=== PATIENT | male | born 1940 | race Caucasian/White ===

== ENCOUNTER → 2016-11-30 | Outpatient (CLI) | payer MEDICARE ==
[2016-11-30 10:25] LABS: Basophils % (A) 1 %; CHCM 35.2; Eosinophils # (A) 0.1 k/uL (0-0.7); Eosinophils % (A) 2 %; HCT 44.2 % (39.0-53.0); HDW 2.77; Luc # (Auto) 0.09; Luc % (Auto) 2; Lymphocytes # (A) 1.3 k/uL (1.0-4.8); Lymphocytes % (A) 28 %; MCH 31.9 pg (25.0-35.0); MCHC 33.9 g/dL (31.0-37.0); MCV 94.4 fL (80.0-100.0); Mean Platelet Volume 7.2; Monocytes # (A) 0.3 k/uL (0-1.0); Monocytes % (A) 6 %; Neutrophils # (A) 2.8 k/uL (1.3-7.7); Neutrophils % (A) 61 %; RBC 4.68 m/uL (4.30-5.90); RDW 13.6 % (11.5-15.5); WBC 4.6 k/uL (3.8-10.6); WBC (Perox) 4.52
[2016-11-30 10:36] LABS: ALT 46 U/L (21-72); AST 39 U/L (17-59); Alkaline Phosphatase 82 U/L (38-126); Anion Gap 12 mmol/L; Blood Urea Nitrogen 11 mg/dL (9-20); Calcium 9.1 mg/dL (8.4-10.2); Carbon Dioxide 23 mmol/L (22-30); Chloride 107 mmol/L (98-107); Cholesterol 167 mg/dL (<200); Creatine Kinase 252 U/L (55-170); Glucose 89 mg/dL (74-99); HDL Cholesterol 46 mg/dL (40-60); Non-African American GFR(MDRD) >60 (>60 ml/min/1.73 sqM); Potassium 4.5 mmol/L (3.5-5.1); Sodium 142 mmol/L (137-145); Total Bilirubin 0.6 mg/dL (0.2-1.3); Total Protein 6.7 g/dL (6.3-8.2); Triglycerides 177 mg/dL (<150)
[2016-11-30 12:16] LABS: Hemoglobin A1C 5.4 % (4.2-6.1)
== END | disposition home or self-care (01) ==
LOC: LABWHC1 09:29
PROVIDERS: ATTEND Internal Medicine
DX: E55.9 Vitamin D deficiency, unspecified (principal); K21.9 Gastro-esophageal reflux disease without esophagitis; E78.00 Pure hypercholesterolemia, unspecified; E03.9 Hypothyroidism, unspecified
CPT/HCPCS: 36415; 80053; 80061; 82306; 82550; 83036; 84439; 84443; 85025

== ENCOUNTER → 2017-02-27 | Outpatient (CLI) | payer MEDICARE ==
[2017-02-27 09:35] LABS: Basophils % (A) 1 %; CHCM 35.5; Eosinophils # (A) 0.1 k/uL (0-0.7); Eosinophils % (A) 3 %; HCT 43.7 % (39.0-53.0); HDW 2.85; HGB 15.5 gm/dL (13.0-17.5); Luc # (Auto) 0.16; Luc % (Auto) 4; Lymphocytes # (A) 1.3 k/uL (1.0-4.8); Lymphocytes % (A) 28 %; MCH 33.1 pg (25.0-35.0); MCHC 35.4 g/dL (31.0-37.0); MCV 93.5 fL (80.0-100.0); Mean Platelet Volume 7.4; Monocytes # (A) 0.3 k/uL (0-1.0); Monocytes % (A) 6 %; Neutrophils # (A) 2.7 k/uL (1.3-7.7); Neutrophils % (A) 59 %; RBC 4.67 m/uL (4.30-5.90); RDW 13.5 % (11.5-15.5); WBC 4.6 k/uL (3.8-10.6)
[2017-02-27 10:10] LABS: Appearance,Urine Clear (Clear); Bilirubin,Urine Negative (Negative); Glucose,Urine (UA) Negative (Negative); Ketones,Urine Negative (Negative); Leukocyte Esterase,Urine Negative (Negative); Nitrite,Urine Negative (Negative); PH, Urine 5.5 (5.0-8.0); Protein,Urine Negative (Negative); Specific Gravity,Urine 1.003 (1.001-1.035); UA Billing (MACRO vs. MICRO) CHEM; Urobilinogen,Urine <2.0 mg/dL (<2.0)
[2017-02-27 10:12] LABS: ALT 56 U/L (21-72); AST 41 U/L (17-59); Alkaline Phosphatase 81 U/L (38-126); Anion Gap 11 mmol/L; Blood Urea Nitrogen 14 mg/dL (9-20); Calcium 9.3 mg/dL (8.4-10.2); Carbon Dioxide 24 mmol/L (22-30); Chloride 104 mmol/L (98-107); Cholesterol 188 mg/dL (<200); Creatine Kinase 254 U/L (55-170); Glucose 89 mg/dL (74-99); HDL Cholesterol 42 mg/dL (40-60); Non-African American GFR(MDRD) >60 (>60 ml/min/1.73 sqM); Potassium 4.5 mmol/L (3.5-5.1); Sodium 139 mmol/L (137-145); Total Protein 6.8 g/dL (6.3-8.2); Uric Acid 6.8 mg/dL (3.5-8.5)
[2017-02-27 13:24] LABS: Hemoglobin A1C 5.5 % (4.2-6.1)
== END | disposition home or self-care (01) ==
LOC: LABWHC1 08:27
PROVIDERS: ATTEND Internal Medicine
DX: E78.00 Pure hypercholesterolemia, unspecified (principal); E55.9 Vitamin D deficiency, unspecified; G47.33 Obstructive sleep apnea (adult) (pediatric); N52.9 Male erectile dysfunction, unspecified; E03.9 Hypothyroidism, unspecified; M10.9 Gout, unspecified
CPT/HCPCS: 36415; 80053; 80061; 81003; 82306; 82550; 83036; 84153; 84403; 84439; 84443; 84550; 85025

== ENCOUNTER → 2017-03-07 | Outpatient (CLI) | payer MEDICARE ==
--- NOTE | 2017-03-07 08:23 | US ---
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 EXAM MEASUREMENTS: RIGHT: Peak Systolic Velocity (PSV) cm/sec ----- Right CCA: 73.9 ----- Right ICA: 63.5 ----- Right ECA: 104.0 ICA/CCA ratio: 0.9 RIGHT: End Diastole cm/sec ----- Right CCA: 14.7 ----- Right ICA: 21.0 ----- Right ECA: 10.8 LEFT: Peak Systolic Velocity (PSV) cm/sec ----- Left CCA: 74.9 ----- Left ICA: 81.9 ----- Left ECA: 96.7 ICA/CCA ratio: 1.1 LEFT: End Diastole cm/sec ----- Left CCA: 16.3 ----- Left ICA: 31.9 ----- Left ECA: 8.7 VERTEBRALS (direction of flow): Right Vertebral: Antegrade Left Vertebral: Antegrade Patient has short thick neck making exam somewhat technically difficult. No significant velocity robel vations, mild plaque IMPRESSION: Minimal arvizu scale atheromatous plaquing within the right carotid bulb. No hemodynamical ly significant stenosis of either carotid system.
== END | disposition home or self-care (01) ==
LOC: RADUSWWP 07:39
PROVIDERS: ATTEND Internal Medicine
DX: I65.21 Occlusion and stenosis of right carotid artery (principal)
CPT/HCPCS: 93880

== ENCOUNTER → 2018-01-16 | Outpatient (CLI) | payer MEDICARE ==
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
== END | disposition home or self-care (01) ==
LOC: SLEEP 16:10
PROVIDERS: ATTEND Internal Medicine
DX: G47.33 Obstructive sleep apnea (adult) (pediatric) (principal); E66.9 Obesity, unspecified; E03.9 Hypothyroidism, unspecified; M10.9 Gout, unspecified; E78.5 Hyperlipidemia, unspecified; F32.9 Major depressive disorder, single episode, unspecified; N53.9 Unspecified male sexual dysfunction; Z96.642 Presence of left artificial hip joint; Z98.890 Other specified postprocedural states; Z99.89 Dependence on other enabling machines and devices; Z87.891 Personal history of nicotine dependence; Z79.899 Other long term (current) drug therapy
CPT/HCPCS: 99211

== ENCOUNTER 2018-03-07 20:28 | Inpatient (IN) | payer MEDICARE ==
[2018-03-07] MEDS ORDERED: SODIUM CHLORIDE 0.9% 1,000 ML IV STA (20:47)
--- NOTE | 2018-03-07 21:16 | ED ---
General Adult HPI - General Chief complaint: Neuro Symptoms/Deficit Stated complaint: dizziness, loss of bladder control Time Seen by Provider: 03/07/18 20:47 Source: patient, RN notes reviewed, old records reviewed Mode of arrival: ambulatory Limitations: no limitations - History of Present Illness Initial comments: This is a 77-year-old male the ER for evaluation. Patient resents today for evaluation regards to multiple complaints, complaints starting dizziness, mostly taxi difficulty walking and ambulating with leaning to the left. Patient also states that he had some issues with urinary incontinence today. Patient did use control his bladder. Patient has had a couple days of headaches prior to this. Denies any history of stroke no history of heart disease. Patient denies any significant recent head trauma. Patient was seen by his family doctor yesterday was put on steroids and been taking steroids for possible swelling of the area causing ataxia. Again patient denies any headache chest pain shortness breath or abdominal pain currently no other new changes in medications aside from taking steroids - Related Data Home Medications Medication Instructions Recorded Confirmed Allopurinol [Zyloprim] 100 mg PO DAILY 04/04/15 04/05/15 DULoxetine HCL [Cymbalta] 30 mg PO DAILY 04/04/15 04/05/15 Levothyroxine Sodium [Synthroid] 75 mcg PO DAILY 04/04/15 04/05/15 Allergies Allergy/AdvReac Type Severity Reaction Status Date / Time No Known Allergies Allergy Verified 04/05/15 07:10 Review of Systems ROS Statement: Those systems with pertinent positive or pertinent negative responses have been documented in the HPI. ROS Other: All systems not noted in ROS Statement are negative. Past Medical History Past Medical History: Hyperlipidemia, Thyroid Disorder History of Any Multi-Drug Resistant Organisms: None Reported Past Surgical History: Cholecystectomy, Orthopedic Surgery, Tonsillectomy Additional Past Surgical History / Comment(s): LEFT ELBOW,LEFT HIP,SPLEEN REPAIRED, Past Anesthesia/Blood Transfusion Reactions: No Reported Reaction Past Psychological History: Depression Smoking Status: Former smoker Past Alcohol Use History: None Reported Past Drug Use History: None Reported - Past Family History Mother Family Medical History: No Reported History General Exam - General Exam Comments Initial Comments: NIH of 0, patient's finger-nose heel camejo is negative Limitations: no limitations General appearance: alert, in no apparent distress Head exam: Present: atraumatic, normocephalic, normal inspection Eye exam: Present: normal appearance, PERRL, EOMI. Absent: scleral icterus, conjunctival injection, nystagmus, periorbital swelling ENT exam: Present: normal exam, mucous membranes moist Neck exam: Present: normal inspection. Absent: tenderness, meningismus, lymphadenopathy Respiratory exam: Present: normal lung sounds bilaterally. Absent: respiratory distress, wheezes, rales, rhonchi, stridor Cardiovascular Exam: Present: regular rate, normal rhythm, normal heart sounds. Absent: systolic murmur, diastolic murmur, rubs, gallop, clicks GI/Abdominal exam: Present: soft, normal bowel sounds. Absent: distended, tenderness, guarding, rebound, rigid Extremities exam: Present: normal inspection, full ROM, normal capillary refill. Absent: tenderness, pedal edema, joint swelling, calf tenderness Back exam: Present: normal inspection Neurological exam: Present: alert, oriented X3, CN II-XII intact Psychiatric exam: Present: normal affect, normal mood Skin exam: Present: warm, dry, intact, normal color. Absent: rash Course Vital Signs 03/07/18 20:33 Temperature 98.3 F Pulse Rate 93 Respiratory 18 Rate Blood Pressure 141/77 O2 Sat by Pulse 98 Oximetry - Reevaluation(s) Reevaluation #1: 03/07/18 21:51 Patient is ataxic on ambulation. No urinary continence hernia EKG Findings - EKG Comments: EKG Findings:: EKG shows sinus rhythm rate of 85, NC 144, QRS 112, QTc 449 Medical Decision Making - Medical Decision Making 77 male to ER for evaluation today is of ataxia, today with urinary incontinence. Patient be admitted for MR brain as well as evaluation by neurology. - Lab Data Result diagrams: 03/07/18 21:12 03/07/18 21:12 Lab Results 03/07/18 03/07/18 03/07/18 Range/Units 21:12 21:12 21:12 WBC 8.5 (3.8-10.6) k/uL RBC 4.94 (4.30-5.90) m/uL Hgb 15.8 (13.0-17.5) gm/dL Hct 47.8 (39.0-53.0) % MCV 96.7 (80.0-100.0) fL MCH 32.0 (25.0-35.0) pg MCHC 33.1 (31.0-37.0) g/dL RDW 13.4 (11.5-15.5) % Plt Count 147 L (150-450) k/uL Neutrophils % 85 % Lymphocytes % 10 % Monocytes % 4 % Eosinophils % 1 % Basophils % 0 % Neutrophils # 7.2 (1.3-7.7) k/uL Lymphocytes # 0.9 L (1.0-4.8) k/uL Monocytes # 0.3 (0-1.0) k/uL Eosinophils # 0.0 (0-0.7) k/uL Basophils # 0.0 (0-0.2) k/uL PT (9.0-12.0) sec INR (<1.2) APTT (22.0-30.0) sec Sodium 139 (137-145) mmol/L Potassium 4.8 (3.5-5.1) mmol/L Chloride 105 (98-107) mmol/L Carbon Dioxide 24 (22-30) mmol/L Anion Gap 10 mmol/L BUN 21 H (9-20) mg/dL Creatinine 1.10 (0.66-1.25) mg/dL Est GFR (CKD-EPI)AfAm 76 (>60 ml/min/1.73 sqM) Est GFR (CKD-EPI)NonAf 65 (>60 ml/min/1.73 sqM) Glucose 160 H (74-99) mg/dL Calcium 9.4 (8.4-10.2) mg/dL Phosphorus 3.4 (2.5-4.5) mg/dL Magnesium 2.0 (1.6-2.3) mg/dL Total Bilirubin 0.5 (0.2-1.3) mg/dL AST 55 (17-59) U/L ALT 55 (21-72) U/L Alkaline Phosphatase 84 (38-126) U/L Total Creatine Kinase 404 H (55-170) U/L Total Protein 7.5 (6.3-8.2) g/dL Albumin 4.7 (3.5-5.0) g/dL 03/07/18 Range/Units 21:12 WBC (3.8-10.6) k/uL RBC (4.30-5.90) m/uL Hgb (13.0-17.5) gm/dL Hct (39.0-53.0) % MCV (80.0-100.0) fL MCH (25.0-35.0) pg MCHC (31.0-37.0) g/dL RDW (11.5-15.5) % Plt Count (150-450) k/uL Neutrophils % % Lymphocytes % % Monocytes % % Eosinophils % % Basophils % % Neutrophils # (1.3-7.7) k/uL Lymphocytes # (1.0-4.8) k/uL Monocytes # (0-1.0) k/uL Eosinophils # (0-0.7) k/uL Basophils # (0-0.2) k/uL PT 10.1 (9.0-12.0) sec INR 1.0 (<1.2) APTT 24.6 (22.0-30.0) sec Sodium (137-145) mmol/L Potassium (3.5-5.1) mmol/L Chloride (98-107) mmol/L Carbon Dioxide (22-30) mmol/L Anion Gap mmol/L BUN (9-20) mg/dL Creatinine (0.66-1.25) mg/dL Est GFR (CKD-EPI)AfAm (>60 ml/min/1.73 sqM) Est GFR (CKD-EPI)NonAf (>60 ml/min/1.73 sqM) Glucose (74-99) mg/dL Calcium (8.4-10.2) mg/dL Phosphorus (2.5-4.5) mg/dL Magnesium (1.6-2.3) mg/dL Total Bilirubin (0.2-1.3) mg/dL AST (17-59) U/L ALT (21-72) U/L Alkaline Phosphatase (38-126) U/L Total Creatine Kinase (55-170) U/L Total Protein (6.3-8.2) g/dL Albumin (3.5-5.0) g/dL - Radiology Data Radiology results: report reviewed (CT brain negative for acute disease), image reviewed Disposition Clinical Impression: Urinary incontinence, Ataxia, Headache Disposition: ADMITTED IP TO THIS [facility] Condition: Undetermined Is patient prescribed a controlled substance at d/c from ED?: No Referrals: Prosper Lowe MD [Primary Care Provider] - 1-2 days
[2018-03-07 21:22] LABS: Basophils % (A) 0 %; Eosinophils % (A) 1 %; HCT 47.8 % (39.0-53.0); HGB 15.8 gm/dL (13.0-17.5); Lymphocytes # (A) 0.9 k/uL (1.0-4.8); Lymphocytes % (A) 10 %; MCHC 33.1 g/dL (31.0-37.0); MCV 96.7 fL (80.0-100.0); Mean Platelet Volume 6.8; Monocytes # (A) 0.3 k/uL (0-1.0); Monocytes % (A) 4 %; Neutrophils # (A) 7.2 k/uL (1.3-7.7); Neutrophils % (A) 85 %; Platelet Count 147 k/uL (150-450); RBC 4.94 m/uL (4.30-5.90); RDW 13.4 % (11.5-15.5); WBC 8.5 k/uL (3.8-10.6)
--- NOTE | 2018-03-07 21:32 | CT ---
EXAMINATION TYPE: CT brain wo con DATE OF EXAM: 03/07/2018 COMPARISON: None HISTORY: c/o dizziness, loss of balance, disorientation CT DLP: 1108.4 mGycm Automated exposure control for dose reduction was used. FINDINGS: There is cerebral cortical atrophy. There is no mass effect nor midline shift. There is no sign of in tracranial hemorrhage. The calvarium is intact. IMPRESSION: MILD ATROPHY. NO ACUTE INTRACRANIAL ABNORMALITY.
[2018-03-07 21:36] LABS: Creatine Kinase 404 U/L (55-170)
[2018-03-07 21:37] LABS: Albumin 4.7 g/dL (3.5-5.0); Calcium 9.4 mg/dL (8.4-10.2); Phosphorus 3.4 mg/dL (2.5-4.5); Potassium 4.8 mmol/L (3.5-5.1); Total Bilirubin 0.5 mg/dL (0.2-1.3); Total Protein 7.5 g/dL (6.3-8.2)
[2018-03-07 21:39] LABS: Partial Thromboplastin Time 24.6 sec (22.0-30.0); Prothrombin Time 10.1 sec (9.0-12.0)
[2018-03-07 21:48] LABS: Troponin I <0.012 ng/mL (0.000-0.034)
[2018-03-07 21:51] LABS: Creatine Kinase MB 4.5 ng/mL (0.0-2.4)
[2018-03-07 23:36] VITALS: BMI 38.5
[2018-03-08 07:27] LABS: Appearance,Urine Clear (Clear); Bilirubin,Urine Negative (Negative); Blood,Urine Negative (Negative); Color,Urine Yellow; Glucose,Urine (UA) Negative (Negative); Ketones,Urine Negative (Negative); Leukocyte Esterase,Urine Negative (Negative); Nitrite,Urine Negative (Negative); PH, Urine 5.5 (5.0-8.0); Protein,Urine Negative (Negative); Specific Gravity,Urine 1.012 (1.001-1.035); Urobilinogen,Urine <2.0 mg/dL (<2.0)
[2018-03-08] MEDS: DULoxetine HCL 30 MG CAPSULE.DR PO SCH (08:31)
[2018-03-08 08:51] VITALS: RESP 18
[2018-03-08] MEDS ORDERED: ALLOPURINOL 100 MG TAB PO SCH (09:00)
[2018-03-08] MEDS ORDERED: LEVOTHYROXINE 75 MCG TAB PO SCH (09:00)
--- NOTE | 2018-03-08 11:35 | MR ---
EXAMINATION TYPE: MR brain wo/w con DATE OF EXAM: 03/08/2018 COMPARISON: CT 03/07/2018 and prior MRI 06/13/2015 HISTORY: 77-year-old male ataxia TECHNIQUE: Multiplanar, multisequence images of the brain and brainstem were acquired before and aft er administration of 11.5 mL IV Gadavist. Diffusion weighted imaging is performed. FINDINGS: There is a 1.1 cm focus of restricted diffusion in the deep white matter of the right cerebral hemisp here located along the posterior limb of the internal capsule superiorly near the level of the blunt radiata. This shows corresponding increased T2/FLAIR signal. No appreciable enhancement. The ventricles and sulci are age-appropriate with mild generalized atrophy. Major intracranial flow voids are intact. T2/FLAIR weighted sequences show mild scattered burden of bright white matter changes in both cerebra l hemispheres located in the subcortical and deep white matter regions, approximately 5 mm side. Midline structures demonstrate normal morphology. The craniocervical junction is normal. Post contrast images demonstrate no evidence of pathologic enhancement. Dural venous sinuses are pat ent. There is mild mucosal thickening throughout the ethmoid air cells. Globes are intact. IMPRESSION: 1. Small 1.1 cm focus of restricted diffusion in the right-sided deep white matter compatible with an acute white matter infarct greater than 6 hours in duration. 2. No mass effect or midline shift. 3. Mild scattered burden of chronic small vessel ischemic disease and mild age-related atrophy. 4. Mild chronic ethmoid sinus disease. Chronic T2 bright white matter changes as described above.
[2018-03-08] MEDS ORDERED: VIT A,C & E-LUTEIN-MINERALS 1 EACH TAB PO SCH (12:00)
[2018-03-08] MEDS ORDERED: LEVOTHYROXINE 88 MCG TAB PO SCH (12:48)
[2018-03-08] MEDS ORDERED: ASPIRIN 325 MG TAB PO SCH (14:00)
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
[2018-03-08] MEDS: ATORVASTATIN 80 MG TAB PO SCH (15:30)
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
--- NOTE | 2018-03-08 16:52 | US ---
EXAMINATION TYPE: US carotid duplex BILAT DATE OF EXAM: 03/08/2018 COMPARISON: 03/07/2017 CLINICAL HISTORY: 77-year-old male stroke; left sided weakness per patient TECHNIQUE: Carotid duplex ultrasound examination. Indirect Doppler criteria was utilized. FINDINGS: EXAM MEASUREMENTS: RIGHT: Peak Systolic Velocity (PSV) cm/sec ----- Right CCA: 55.1 ----- Right ICA: 50.2 ----- Right ECA: 73.9 ICA/CCA ratio: 0.9 RIGHT: End Diastole cm/sec ----- Right CCA: 15.9 ----- Right ICA: 17.6 ----- Right ECA: 13.1 LEFT: Peak Systolic Velocity (PSV) cm/sec ----- Left CCA: 70.0 ----- Left ICA: 103.4 ----- Left ECA: 132.6 ICA/CCA ratio: 1.5 LEFT: End Diastole cm/sec ----- Left CCA: 14.4 ----- Left ICA: 33.5 ----- Left ECA: 10.4 VERTEBRALS (direction of flow): Right Vertebral: Antegrade Left Vertebral: Antegrade Rhythm: Normal Mild, irregular wall changes noted bilateral bifurcation, but elevated velocity > 125cm/s is noted on ly in Left ECA proximally. IMPRESSION: 1. No hemodynamically significant stenosis appreciated in either internal carotid artery. 2. There is some stenosis in the proximal left ECA incidentally noted. Criteria for Assigning % of Stenosis / Diameter reduction (Estimation based on the indirect measurements of the internal carotid artery velocities (ICA PSV). 1. Normal (no stenosis)=ICA PSV < 125 cm/s: ratio < 2.0: ICA EDV<40 cm/s. 2. Less than 50% stenosis=ICA PSV < 125 cm/s: ratio < 2.0: ICA EDV<40 cm/s. 3. 50 to 69% stenosis=ICA PSV of 125 to 230 cm/s: ration 2.0 ? 4.0: ICA EDV 40-100 cm/s. 4. Greater than 70% stenosis to near occlusion= ICA PSV > 230 cm/s: ratio > 4.0: ICA EDV > 100 cm/s. 5. Near occlusion= ICA PSV velocities may be low or undetectable: variable ratio and ICA EDV. 6. Total occlusion=unable to detect flow.
[2018-03-08] MEDS: ALLOPURINOL 100 MG TAB PO SCH (21:12)
[2018-03-08] MEDS: VIT A,C & E-LUTEIN-MINERALS 1 EACH TAB PO SCH (23:56)
[2018-03-09] MEDS ORDERED: LEVOTHYROXINE 88 MCG TAB PO SCH (06:30)
[2018-03-09 06:36] LABS: Basophils # (A) 0.1 k/uL (0-0.2); Basophils % (A) 1 %; Eosinophils # (A) 0.1 k/uL (0-0.7); Eosinophils % (A) 2 %; HCT 45.6 % (39.0-53.0); HGB 15.8 gm/dL (13.0-17.5); Lymphocytes # (A) 1.7 k/uL (1.0-4.8); Lymphocytes % (A) 28 %; MCH 32.4 pg (25.0-35.0); MCHC 34.7 g/dL (31.0-37.0); MCV 93.1 fL (80.0-100.0); Mean Platelet Volume 7.1; Monocytes # (A) 0.4 k/uL (0-1.0); Monocytes % (A) 7 %; Neutrophils # (A) 3.6 k/uL (1.3-7.7); Neutrophils % (A) 60 %; Platelet Count 131 k/uL (150-450); RDW 13.1 % (11.5-15.5)
[2018-03-09 06:53] LABS: Calcium 9.1 mg/dL (8.4-10.2); Potassium 4.5 mmol/L (3.5-5.1); Total Bilirubin 0.7 mg/dL (0.2-1.3); Total Protein 6.6 g/dL (6.3-8.2)
[2018-03-09] MEDS: ALLOPURINOL 100 MG TAB PO SCH (08:04)
[2018-03-09] MEDS: VIT A,C & E-LUTEIN-MINERALS 1 EACH TAB PO SCH (08:04)
[2018-03-09] MEDS: ATORVASTATIN 80 MG TAB PO SCH (08:04)
[2018-03-09] MEDS ORDERED: CLOPIDOGREL 75 MG TAB PO SCH (09:00)
--- NOTE | 2018-03-09 09:05 | P.DS ---
Providers Date of admission: 03/07/18 21:51 Attending physician: Prosper Lowe Consults: 03/07/18 21:52 Consult Physician Routine Consulting Provider: Ivana Cifuentes Consult Reason/Comments: ataxia Do you want consulting provider notified?: Yes Primary care physician: Prosper Lowe Hospital Course: This is a 77 years old male with past medical history of hyperlipidemia, hypothyroidism presented with ataxia and dizziness for the past 3 days. Patient was in the [employer] store and had an episode of urinary incontinence the day prior. Patient also was found to be falling towards his left side and banking in things. He hasn't noticed any speech difficulty but family at bedside had noticed patient's speech is low and his slurred. Patient denies any vision changes, seizure activity, motor or sensory deficit. CT head was inconclusive for acute ischemic stroke. MRI brain suggested a right deep matter stroke in the middle cerebral artery distribution. Carotid Dopplers ordered. Lipid panel ordered. EEG ordered. Patient initiated on Plavix 75 mg by mouth daily with Lipitor 80 mg by mouth daily. Lipid panel ordered. Neurology consult. Ordered 03/09 patient is doing well. Slight slurring of speech noted on examination. Patient able to ambulate without any falls on the left. LDL 94. 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 Lowe as outpatient. She has been taking simvastatin at home. Echo cardiogram pending discharge diagnoses acute ischemic stroke hypothyroidism hyperlipidemia disposition home with home physical therapy patient is refusing inpatient rehab or subacute rehab states he "with home physical therapy. CC a copy of discharge Dr. Lowe. Patient Condition at Discharge: Undetermined Plan - Discharge Summary Discharge Rx Participant: No New Discharge Prescriptions: New Clopidogrel [Plavix] 75 mg PO DAILY #30 tab Rosuvastatin Calcium [Crestor] 10 mg PO DAILY #30 tab Continue DULoxetine HCL [Cymbalta] 30 mg PO DAILY Allopurinol [Zyloprim] 100 mg PO BID Vit C/E/Zn/Coppr/Lutein/Zeaxan [Preservision Areds 2 Softgel] 1 cap PO BID Levothyroxine Sodium [Synthroid] 88 mcg PO DAILY methylPREDNISolone [Medrol Dose Pack] See Taper PO DIRECTED Discharge Medication List Allopurinol [Zyloprim] 100 mg PO BID 04/04/15 [History] DULoxetine HCL [Cymbalta] 30 mg PO DAILY 04/04/15 [History] Levothyroxine Sodium [Synthroid] 88 mcg PO DAILY 03/08/18 [History] Vit C/E/Zn/Coppr/Lutein/Zeaxan [Preservision Areds 2 Softgel] 1 cap PO BID 03/08 [History] methylPREDNISolone [Medrol Dose Pack] See Taper PO DIRECTED 03/08/18 [History ] Clopidogrel [Plavix] 75 mg PO DAILY #30 tab 03/09/18 [Rx] Rosuvastatin Calcium [Crestor] 10 mg PO DAILY #30 tab 03/09/18 [Rx] Follow up Appointment(s)/Referral(s): Prosper Lowe MD [Primary Care Provider] - 1-2 days Ivana Cifuentes MD [STAFF PHYSICIAN] - 1 Week Patient Instructions/Handouts: Ischemic Stroke (DC) Discharge Disposition: HOME WITH HOME HEALTH SERVICES
[2018-03-09] MEDS: DULoxetine HCL 30 MG CAPSULE.DR PO SCH (09:08)
[2018-03-09 09:13] VITALS: BP 165/70; PULSE 75; TEMP 97.4
--- NOTE | 2018-03-12 09:45 | ECHOF ---
Referral Reason:stroke MEASUREMENTS -------- HEIGHT: 170.2 cm WEIGHT: 111.6 kg BP: 146/88 IVSd: 1.2 cm (0.6 - 1.1) LVIDd: 5.6 cm (3.9 - 5.3) LVPWd: 1.2 cm (0.6 - 1.1) EDV(Teich): 151 ml IVSs: 1.9 cm LVIDs: 3.1 cm LVPWs: 1.5 cm %IVS Thck: 58 % ESV(Teich): 38 ml EF(Teich): 75 % %FS: 44 % SV(Teich): 113 ml LA Diam: 3.7 cm (2.7 - 3.8) RVIDd: 2.3 cm (< 3.3) LALs A4C: 4.9 cm LAAs A4C: 16.5 cm LAESV A-L A4C: 47 ml LAESV MOD A4C: 45 ml LALs A2C: 5.3 cm LAAs A2C: 19.3 cm LAESV A-L A2C: 60 ml LAESV MOD A2C: 60 ml LAESV(A-L): 55 ml LAESV Index (A-L): 24.68 ml/m Ao Diam: 3.8 cm (2.0 - 3.7) AV Cusp: 2.1 cm (1.5 - 2.6) EPSS: 1.0 cm MV E Magdaleno: 0.76 m/s MV DecT: 155 ms MV Dec Sequoyah: 4.9 m/s MV A Magdaleno: 0.77 m/s MV E/A Ratio: 0.98 MV PHT: 45 ms AV Vmax: 1.09 m/s AV maxP.79 mmHg AR Vmax: 2.27 m/s AR maxP.62 mmHg AR PHT: 641 ms AR Dec Time: 2210 ms AR Dec Sequoyah: 1.0 m/s TR Vmax: 2.15 m/s TR maxP.43 mmHg RAP: 5.00 mmHg RVSP: 23.43 mmHg MV EF SLOPE: 45.89 mm/s (70 - 150) MV EXCURSION: 13.28 mm (> 18.000) FINDINGS -------- Sinus rhythm. This was a technically difficult study with suboptimal views. The left ventricular size is normal. There is borderline concentric left ventricular hypertrophy. Overall left ventricular systolic function is normal with, an EF between 55 - 60 %. The right ventricle is normal in size. Normal LA size by volume 22+/-6 ml/m2. The right atrium is normal in size. 3 ml of Lumason was utilized for enhancement of images. There is mild aortic valve sclerosis. There is mild aortic regurgitation. Mild mitral annular calcification present. Mild tricuspid regurgitation present. Right ventricular systolic pressure is normal at < 35 mmHg. The pulmonic valve was not well visualized. The aortic root is dilated measuring 3.8cm. IVC Not well visulized. There is no pericardial effusion. CONCLUSIONS -------- 1. Sinus rhythm. 2. This was a technically difficult study with suboptimal views. 3. The left ventricular size is normal. 4. There is borderline concentric left ventricular hypertrophy. 5. Overall left ventricular systolic function is normal with, an EF between 55 - 60 %. 6. The right ventricle is normal in size. 7. Normal LA size by volume 22+/-6 ml/m2. 8. The right atrium is normal in size. 9. 3 ml of Lumason was utilized for enhancement of images. 10. There is mild aortic valve sclerosis. 11. There is mild aortic regurgitation. 12. Mild mitral annular calcification present. 13. Mild tricuspid regurgitation present. 14. Right ventricular systolic pressure is normal at < 35 mmHg. 15. The pulmonic valve was not well visualized. 16. The aortic root is dilated measuring 3.8cm. 17. IVC Not well visulized. 18. There is no pericardial effusion. [employer] SALES ADVISOR: Annie Rodriguez RDCS
== END 2018-03-09 11:21 | disposition home health service (06) | DRG 66 ==
LOC: EC 20:28 → 6SEL 21:51
PROVIDERS: ADMIT Internal Medicine; ATTEND Internal Medicine
DX: I63.9 Cerebral infarction, unspecified (principal); R27.8 Other lack of coordination; R47.81 Slurred speech; R32 Unspecified urinary incontinence; E78.5 Hyperlipidemia, unspecified; E03.9 Hypothyroidism, unspecified; R20.0 Anesthesia of skin; R29.702 NIHSS score 2; Z87.891 Personal history of nicotine dependence; Z79.890 Hormone replacement therapy; Z79.52 Long term (current) use of systemic steroids; Z79.899 Other long term (current) drug therapy; Z90.49 Acquired absence of other specified parts of digestive tract
CPT/HCPCS: 36415; 70450; 70553; 80053; 80061; 81003; 82550; 82553; 83090; 83735; 84100; 84484; 85025; 85610; 85730; 93005; 93306; 93880; 96360; 99285

== ENCOUNTER 2018-03-24 10:19 | Emergency (ER) | payer MEDICARE ==
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
[2018-03-24 11:13] LABS: Basophils % (A) 1 %; Eosinophils # (A) 0.1 k/uL (0-0.7); Eosinophils % (A) 2 %; HCT 43.8 % (39.0-53.0); HGB 15.1 gm/dL (13.0-17.5); Lymphocytes # (A) 1.4 k/uL (1.0-4.8); Lymphocytes % (A) 23 %; MCHC 34.5 g/dL (31.0-37.0); MCV 92.6 fL (80.0-100.0); Mean Platelet Volume 7.6; Monocytes # (A) 0.3 k/uL (0-1.0); Monocytes % (A) 6 %; Neutrophils # (A) 4.1 k/uL (1.3-7.7); Neutrophils % (A) 68 %; Platelet Count 123 k/uL (150-450); RBC 4.73 m/uL (4.30-5.90)
[2018-03-24 11:20] LABS: INR 1.1 (<1.2); Partial Thromboplastin Time 25.7 sec (22.0-30.0); Prothrombin Time 10.8 sec (9.0-12.0)
[2018-03-24 11:32] LABS: Albumin 4.2 g/dL (3.5-5.0); Calcium 9.3 mg/dL (8.4-10.2); Potassium 4.7 mmol/L (3.5-5.1); Total Bilirubin 0.8 mg/dL (0.2-1.3); Total Protein 6.7 g/dL (6.3-8.2)
[2018-03-24 11:39] LABS: Creatine Kinase 207 U/L (55-170)
--- NOTE | 2018-03-24 11:44 | CT ---
EXAMINATION TYPE: CT brain wo con DATE OF EXAM: 03/24/2018 COMPARISON: March 07, 2018 HISTORY: Neuro Deficits CT DLP: [address] of the brain was performed. The ventricles, basal cisterns and sulci overlying the cerebral convexities demonstrate mild enlargem ent. There is no evidence for intracranial hemorrhage or sulcal effacement. There is decreased attenuation about the periventricular white matter and deep white matter of both c erebral hemispheres, compatible with chronic small vessel ischemia. Differential diagnosis does inclu de demyelination. No mass effects are seen.No midline shift. Osseous calvarium is intact. If symptoms persist consider MRI. IMPRESSION: 1. Age related atrophic and chronic small vessel ischemic change without acute intracranial process s een at this time.
[2018-03-24 11:52] LABS: Creatine Kinase MB 2.9 ng/mL (0.0-2.4); Troponin I <0.012 ng/mL (0.000-0.034)
[2018-03-24 12:13] VITALS: BP 156/67; PULSE 70; RESP 18
--- NOTE | 2018-03-24 12:25 | XR ---
EXAMINATION TYPE: XR chest 2V DATE OF EXAM: 03/24/2018 COMPARISON: NONE HISTORY: Shortness of breath TECHNIQUE: Frontal and lateral views of the chest are obtained. FINDINGS: Scattered senescent parenchymal changes noted. Hyperinflation compatible with COPD. No evidence for infiltrate. No evidence for atelectasis. Chronic elevation left hemidiaphragm. Granul kelby left upper lobe. Heart size is stable. Mediastinal structures are stable and grossly unremarkable. No evidence for hilar prominence. Degenerative changes dorsal spine. IMPRESSION: 1. No evidence for acute pulmonary disease.
[2018-03-24 12:55] VITALS: TEMP 98.5
== END 2018-03-24 12:54 | disposition home or self-care (01) ==
LOC: EC 10:19
DX: R20.2 Paresthesia of skin (principal); E07.9 Disorder of thyroid, unspecified; F32.9 Major depressive disorder, single episode, unspecified; Z87.891 Personal history of nicotine dependence; Z86.73 Personal history of transient ischemic attack (TIA), and cerebral infarction without residual deficits; Z90.49 Acquired absence of other specified parts of digestive tract; Z98.890 Other specified postprocedural states; Z79.899 Other long term (current) drug therapy
CPT/HCPCS: 36415; 70450; 71046; 80053; 82550; 82553; 84484; 85025; 85610; 85730; 93005; 99284

== ENCOUNTER → 2018-04-03 | Outpatient (CLI) | payer MEDICARE ==
--- NOTE | 2018-04-03 09:14 | MR ---
EXAMINATION TYPE: MR lumbar spine wo con DATE OF EXAM: 04/03/2018 COMPARISON: NONE HISTORY: Low back pain TECHNIQUE: T1 and T2 axial and sagittal images of the lumbar spine are submitted. FINDINGS: There is no abnormal signal seen within the visualized spinal cord or paraspinal soft tissu es. At L1-2 there is degenerative disc disease. Circumferential disc bulging and hypertrophic change face ts. No Canal stenosis. Mild bilateral foraminal encroachment. At L2-3 there is degenerative disc disease with broad-based disc protrusion and facet hypertrophic ch anges. Mild to moderate effacement of thecal sac. Mild bilateral foraminal encroachment and findings suggestive borderline central stenosis. At L3-4 there is degenerative disc disease with broad-based central disc bulging or protrusion. Mild effacement of thecal sac with the borderline to mild central stenosis. There is mild bilateral forami nal encroachment. At L4-5 there is severe degenerative disc disease with hypertrophic changes facets. Broad-based disc bulging with borderline central stenosis and mild to moderate bilateral foraminal encroachment. At L5-S1 there is degenerative disc disease with severe facet arthropathy. There is circumferential d isc bulging extending laterally. There is severe bilateral foraminal encroachment greater on the left . No focal herniation. No central stenosis. IMPRESSION: 1. Multilevel moderate to severe degenerative disc disease and facet arthropathy. Findings are simila r to the prior exam. 2. multilevel disc bulging seen in association with hypertrophic changes result in multilevel border line central stenosis. Severe bilateral foraminal encroachment L5-S1. Findings are similar to the cole or exam.
== END | disposition home or self-care (01) ==
LOC: RADMRIMAIN 06:11
PROVIDERS: ATTEND Psychiatry & Neurology Neurology
DX: M48.061 Spinal stenosis, lumbar region without neurogenic claudication (principal); M51.36 Other intervertebral disc degeneration, lumbar region; M51.26 Other intervertebral disc displacement, lumbar region; M46.96 Unspecified inflammatory spondylopathy, lumbar region
CPT/HCPCS: 72148

== ENCOUNTER → 2019-04-16 | Outpatient (CLI) | payer MEDICARE ==
--- NOTE | 2019-04-16 10:17 | US ---
EXAMINATION TYPE: US carotid duplex BILAT DATE OF EXAM: 04/16/2019 COMPARISON: 03/08/2018 CLINICAL HISTORY: 78-year-old male I67.82 cerebral ischemia. H/O Stroke TECHNIQUE: Carotid duplex ultrasound examination. Indirect Doppler criteria is utilized. FINDINGS: EXAM MEASUREMENTS: RIGHT: Peak Systolic Velocity (PSV) cm/sec ----- Right CCA: 85.5 ----- Right ICA: 92.1 ----- Right ECA: 85.5 ICA/CCA ratio: 1.1 RIGHT: End Diastole cm/sec ----- Right CCA: 19.4 ----- Right ICA: 32.6 ----- Right ECA: 6.2 LEFT: Peak Systolic Velocity (PSV) cm/sec ----- Left CCA: 97.6 ----- Left ICA: 75.6 ----- Left ECA: 82.2 ICA/CCA ratio: 0.8 LEFT: End Diastole cm/sec ----- Left CCA: 21.6 ----- Left ICA: 29.3 ----- Left ECA: 6.2 VERTEBRALS (direction of flow): Right Vertebral: Antegrade Left Vertebral: Antegrade Rhythm: Normal Electronic Funds Transfer Coordinator notes: No significant stenosis seen IMPRESSION: No hemodynamically significant proximal ICA stenosis on either side. Criteria for Assigning % of Stenosis / Diameter reduction (Estimation based on the indirect measurements of the internal carotid artery velocities (ICA PSV). 1. Normal (no stenosis)=ICA PSV < 125 cm/s: ratio < 2.0: ICA EDV<40 cm/s. 2. Less than 50% stenosis=ICA PSV < 125 cm/s: ratio < 2.0: ICA EDV<40 cm/s. 3. 50 to 69% stenosis=ICA PSV of 125 to 230 cm/s: ration 2.0 ? 4.0: ICA EDV 40-100 cm/s. 4. Greater than 70% stenosis to near occlusion= ICA PSV > 230 cm/s: ratio > 4.0: ICA EDV > 100 cm/s. 5. Near occlusion= ICA PSV velocities may be low or undetectable: variable ratio and ICA EDV. 6. Total occlusion=unable to detect flow.
--- NOTE | 2019-04-16 13:40 | ECHOS ---
STRESS ECHOCARDIOGRAM DATE OF SERVICE: 04/16/2019 INDICATIONS: MEDICATIONS: BASELINE HEART RATE: 65 BASELINE BLOOD PRESSURE: 134/67 MAXIMUM HEART RATE: 131 MAXIMUM BLOOD PRESSURE: 170/52 85% MPHR: 122 100% MPHR: 144 METS: 9.9 MAXIMUM STAGE REACHED: III TOTAL EXERCISE TIME: 8 minutes 15 seconds CLINICAL INFORMATION: Patient was exercised for a total period of 8 minutes. The peak heart rate of 131 was achieved. Maximum blood pressure of 170/52 mmHg was noted. Resting EKG shows normal sinus rhythm with normal PA interval and QRS duration and normal ST-T waves. No ST- segment depression suggestive of ischemia is noted. The baseline echocardiographic images reveals normal left ventricular chamber size with normal left ventricular systolic function. In the immediate postexercise periods, normal increase in the wall thickness and contractility is noted. FINAL IMPRESSION: This stress echocardiographic study is negative for stress-induced ischemia. EKG portion of the stress test is not suggestive of ischemia. MMODL / IJN: [id number] /
== END | disposition home or self-care (01) ==
LOC: RADUSMAIN 08:20
PROVIDERS: ATTEND Internal Medicine
DX: I67.82 Cerebral ischemia (principal); R94.31 Abnormal electrocardiogram [ECG] [EKG]
CPT/HCPCS: 93351; 93880

== ENCOUNTER → 2019-06-26 | Outpatient (CLI) | payer MEDICARE ==
--- NOTE | 2019-06-26 09:58 | CT ---
EXAMINATION TYPE: CT abdomen pelvis w con DATE OF EXAM: 06/26/2019 COMPARISON: None HISTORY: Bowel obstruction CT DLP: 1675.7 mGycm CONTRAST: CT scan of the abdomen and pelvis is performed with Oral Contrast and with IV Contrast, patient injec deb with 100 mL of Isovue 300. FINDINGS: LUNG BASES-: No visible nodule. No infiltrate. Left basilar parenchymal scarring or atelectasis. LIVER/GB: No calcified gallstones. No space occupying hepatic lesion. Biliary tree is of normal ca liber. PANCREAS: No inflammation. No distinct mass. SPLEEN: No splenic enlargement. No lesion seen. Splenic granulomas noted. ADRENALS: No nodule. No thickening. KIDNEYS/BLADDER: No hydronephrosis. No nephrolithiasis. No distinct renal mass. Urinary bladder g rossly unremarkable. BOWEL: Normal appendix. Normal bowel caliber. No inflammation. GENITAL ORGANS: No gross abnormality. LYMPH NODES: No greater than 1cm abdominal or pelvic lymph nodes are appreciated. AORTA: No significant abnormality. OSSEOUS STRUCTURES: No significant abnormality is seen. OTHER: Containing right inguinal hernia. IMPRESSION: 1. Containing right inguinal hernia. 2. No evidence for bowel obstruction. No free air or abscess identified.
== END | disposition home or self-care (01) ==
LOC: RADCTMAIN 07:28
PROVIDERS: ATTEND Internal Medicine
DX: K40.90 Unilateral inguinal hernia, without obstruction or gangrene, not specified as recurrent (principal); K56.609 Unspecified intestinal obstruction, unspecified as to partial versus complete obstruction
CPT/HCPCS: 82565; 84520; 74177; 36415; Q9967 ×2

== ENCOUNTER 2019-11-20 18:07 | Inpatient (IN) | payer MEDICARE ==
[2019-11-20] MEDS ORDERED: SODIUM CHLORIDE 0.9% 1,000 ML IV STA (18:29)
[2019-11-20] MEDS ORDERED: ONDANSETRON 4 MG/2 ML VIAL IVP STA (18:29)
[2019-11-20] MEDS ORDERED: HYDROmorphone 0.5 MG/0.5 ML SYRINGE IVP STA (18:31)
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
[2019-11-20 19:16] LABS: Basophils % (A) 0 %; Eosinophils # (A) 0.1 k/uL (0-0.7); Eosinophils % (A) 1 %; HGB 15.3 gm/dL (13.0-17.5); Lymphocytes # (A) 0.9 k/uL (1.0-4.8); Lymphocytes % (A) 9 %; MCH 32.7 pg (25.0-35.0); MCHC 34.1 g/dL (31.0-37.0); MCV 95.9 fL (80.0-100.0); Mean Platelet Volume 7.7; Monocytes # (A) 0.5 k/uL (0-1.0); Monocytes % (A) 5 %; Neutrophils # (A) 8.2 k/uL (1.3-7.7); Neutrophils % (A) 83 %; Platelet Count 125 k/uL (150-450); RBC 4.69 m/uL (4.30-5.90); WBC 9.8 k/uL (3.8-10.6)
[2019-11-20 19:28] LABS: Albumin 4.5 g/dL (3.5-5.0); Calcium 9.6 mg/dL (8.4-10.2); Potassium 4.6 mmol/L (3.5-5.1); Total Bilirubin 0.9 mg/dL (0.2-1.3); Total Protein 7.2 g/dL (6.3-8.2)
[2019-11-20 19:46] LABS: Partial Thromboplastin Time 24.5 sec (22.0-30.0); Prothrombin Time 10.5 sec (9.0-12.0)
--- NOTE | 2019-11-20 20:06 | CT ---
EXAMINATION TYPE: CT abdomen pelvis w con DATE OF EXAM: 11/20/2019 COMPARISON: 06/26/2019 INDICATION: abdominal pain, hx of SBO DLP: 1521.2 mGycm, Automated exposure control for dose reduction was used. CONTRAST: 100 mL of Isovue 300. Study performed without Oral Contrast TECHNIQUE: Axial images were obtained from above the diaphragm to the pubic rami in the axial plane a t 5 mm thick sections. Reconstructed images are reviewed on the computer in the coronal plane. FINDINGS: Limited CT sections are obtained the lung bases. There is some streak atelectasis at the left lung b ase.. CT ABDOMEN: Liver: Normal Spleen: Multiple calcified granuloma are within the spleen. Pancreas: Normal Adrenal glands: The adrenal glands are normal. Gallbladder: Surgically absent Kidneys: No masses are evident. No hydronephrosis is present. No cysts are present. Delayed images were obtained through the kidneys, which remain unremarkable. Aorta: Vascular calcification is within the aorta. Inferior vena cava: Normal. CT PELVIS: Multiple dilated small bowel loops are in the left upper quadrant. This appears to extend to the left midabdomen. Mild zone of transition appears to be present series 202 image 53 with decompressed ileu m. Air and fecal debris is within the colon. The stomach is dilated with fluid. Studies performed wit hout oral contrast. Appendix: Not identified. No suspicious tubular structures or inflammatory changes are evident to sug gest acute appendicitis. Urinary bladder: Normal. Genitourinary structures: Prostate is normal. There appears to be a small right inguinal hernia conta ining mesenteric fat and some fluid. Osseous structures: No suspicious lytic or sclerotic lesions. Left pelvic repair is evident facet deg enerative changes are within the lumbar spine. Vacuum disc phenomenon is within the L4-5 L5-S1 disc s paces. IMPRESSIONS: 1. Partial small bowel obstruction within the distal jejunal ileal junction region left lower quadra nt. Etiology is not radiographically apparent.
[2019-11-20] MEDS ORDERED: NALOXONE 0.4 MG/ML 1 ML VIAL IV PRN (21:23)
[2019-11-20] MEDS ORDERED: ONDANSETRON 4 MG/2 ML VIAL IVP PRN (21:23)
[2019-11-20] MEDS ORDERED: KETOROLAC 30 MG/ML 1 ML VIAL IVP PRN ×2 (21:23→21:28)
[2019-11-20] MEDS ORDERED: SODIUM CHLORIDE 0.9% 1,000 ML IV SCH (21:30)
[2019-11-20] MEDS: HYDROmorphone 0.5 MG/0.5 ML SYRINGE IVP PRN (22:13)
--- NOTE | 2019-11-20 22:41 | XR ---
EXAMINATION TYPE: XR chest 1V portable DATE OF EXAM: 11/20/2019 COMPARISON: 03/24/2018 HISTORY: Check tube placement TECHNIQUE: 2 views FINDINGS: There is nasogastric tube in the tip is in the stomach. There is chronic elevated left diap hragm. There is no heart failure. There are no hilar masses. Heart size is normal. IMPRESSION: Chronic elevated left diaphragm. Unchanged. No acute lung disease. No heart failure. Naso gastric tube is in the stomach.
[2019-11-21] MEDS: HYDROmorphone 0.5 MG/0.5 ML SYRINGE IVP PRN ×4 (01:13→14:39)
[2019-11-21 08:57] LABS: Appearance,Urine Clear (Clear); Bilirubin,Urine Negative (Negative); Blood,Urine Negative (Negative); Color,Urine Yellow; Glucose,Urine (UA) Negative (Negative); Ketones,Urine Negative (Negative); Leukocyte Esterase,Urine Negative (Negative); Nitrite,Urine Negative (Negative); PH, Urine 5.5 (5.0-8.0); Protein,Urine Negative (Negative); Specific Gravity,Urine 1.037 (1.001-1.035); Urobilinogen,Urine <2.0 mg/dL (<2.0)
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
[2019-11-21] MEDS: DEXTROSE 5%-0.9% NACL 1,000 ML IV SCH ×3 (12:02→21:31)
[2019-11-21] MEDS ORDERED: SODIUM CHLORIDE 0.9% 1,000 ML IV ONE (12:16)
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
[2019-11-21] MEDS: HEPARIN SODIUM,PORCINE 5,000 UNIT/ML 1 ML VIAL SQ SCH ×2 (16:25→23:22)
[2019-11-22] MEDS: DEXTROSE 5%-0.9% NACL 1,000 ML IV SCH ×2 (07:01→16:49)
[2019-11-22 08:15] LABS: Basophils % (A) 0 %; Eosinophils # (A) 0.1 k/uL (0-0.7); Eosinophils % (A) 2 %; HCT 42.3 % (39.0-53.0); HGB 13.5 gm/dL (13.0-17.5); Lymphocytes # (A) 0.9 k/uL (1.0-4.8); Lymphocytes % (A) 16 %; MCH 31.1 pg (25.0-35.0); MCV 97.4 fL (80.0-100.0); Mean Platelet Volume 7.9; Monocytes # (A) 0.4 k/uL (0-1.0); Monocytes % (A) 7 %; Neutrophils # (A) 4.2 k/uL (1.3-7.7); Neutrophils % (A) 73 %; Platelet Count 118 k/uL (150-450); RBC 4.34 m/uL (4.30-5.90); RDW 13.1 % (11.5-15.5); WBC 5.8 k/uL (3.8-10.6)
[2019-11-22 08:26] LABS: Albumin 3.8 g/dL (3.5-5.0); Calcium 8.5 mg/dL (8.4-10.2); Potassium 4.1 mmol/L (3.5-5.1); Total Bilirubin 0.7 mg/dL (0.2-1.3); Total Protein 6.3 g/dL (6.3-8.2)
[2019-11-22] MEDS: HEPARIN SODIUM,PORCINE 5,000 UNIT/ML 1 ML VIAL SQ SCH ×3 (09:56→23:08)
[2019-11-22] MEDS: PANTOPRAZOLE 40 MG/10 ML VIAL IVP SCH (09:56)
[2019-11-22] MEDS: TIMOLOL 0.5% OPHTH DROPS 5 ML BTL BOTH EYES SCH (11:01)
--- NOTE | 2019-11-22 11:32 | P.PN ---
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, hyperthyroidism, gout, patient just got back from [place] about 2 weeks ago, he developed to have an increased abdominal pain around the upper part of the abdomen associated with increased nausea, the pain was so intense to the degree that he could not sit still he try to call my office yesterday at around 5:00 in the evening however he ended up coming to the emergency department for evaluation after he described this pain as waxing and waning, he gets to the p oint that it can get up to 10 out of 10 in intensity and the patient ended up seeing the ER had a chest x-ray initially that showed minimal atelectasis in the left lower lobe followed by computed tomography scan of the abdomen and pelvis with contrast that documented a partial small bowel obstruction with a transition point in the left lower quadrant, patient was seen in consultation by general surgery and the patient had an NG tube placed and he was started on IV fluid resuscitation, we will continue to monitor the patient very closely hopefully will continue with conservative approach and if it need be general surgery is on the consult as a standby. Patient did have this happen about in [place] and the last time he ended up staying in the hospital for 72 hour before he went back to normal. 11/21: He shouldn't is sitting up in bed in no apparent distress he continues to have his NG tube in place, his abdominal pain is a lot better his NG tube output to the increased by 50 mL over the last 3 hours, with a total of 400 since last night, patient will have an abdominal x-ray to evaluate for small bowel obstruction, patient stated that he has no chest pain or sores with this time, he feeling better, we will try to do the x-ray first and if the x-ray did not show any evidence of a bowel obstruction then we will clamp his NG tube and that the patient walk around we'll admit and try to offer him some ice chips otherwise we will continue with the same treatment until next 24 hours then reevaluate. Objective - Vital Signs Vital signs: Vital Signs Temp 98.3 F 11/22/19 07:00 Pulse 73 11/22/19 07:00 Resp 18 11/22/19 07:00 BP 146/70 11/22/19 07:00 Pulse Ox 96 11/22/19 07:00 Intake & Output 11/21/19 11/22/19 11/22/19 18:59 06:59 18:59 Intake Total 1359 0 Output Total 1340 575 Balance 19 -575 Intake: IV 1359 Sodium Chloride 0.9% 1, 360 000 ml @ 60 mls/hr IV . [id number] RAMBO Rx#:[id number] Sodium Chloride 0.9% 1, 999 000 ml @ 999 mls/hr IV . Q1H1M ONE Rx#:[id number] Oral 0 Output: Gastric Drainage 75 Urine 1340 500 Other: # Voids 1 - Exam Review of Systems Constitutional: Reports weakness, Denies anorexia, Denies chronic headaches, Denies chronic pain, Denies fatigue, Denies weight gain, Denies weight loss Ears: deny: decreased hearing Ears, nose, mouth and throat: Reports sore throat, Denies dysphagia, Denies neck lump Cardiovascular: Denies chest pain, Denies decreased exercise tolerance, Denies leg edema, Denies lightheadedness, Denies rapid heart beat, Denies shortness of breath, Denies syncope Respiratory: Denies congestion, Denies cough with sputum, Denies home oxygen, Denies respiratory infections, Denies snoring, Denies wheezing Gastrointestinal: Reports abdominal pain, Reports change in bowel habits, Reports loss of appetite, Reports nausea, Denies belching, Denies bloating, Denies diarrhea, Denies dyspepsia, Denies early satiety, Denies excessive gas, Denies heartburn, Denies hematemesis, Denies lactose intolerance, Denies melena, Denies vomiting Genitourinary: Denies dysuria, Denies nocturia Musculoskeletal: Denies myalgias Musculoskeletal: absent: ankle pain, ankle stiffness, ankle swelling, elbow pain, elbow stiffness, elbow swelling, foot pain, foot stiffness, foot swelling, hand pain, hand stiffness, hand swelling, hip pain, hip stiffness, hip swelling, knee pain, knee stiffness, knee swelling, shoulder pain, shoulder stiffness, shoulder swelling, wrist pain, wrist stiffness, wrist swelling Integumentary: Denies pruritus, Denies rash Neurological: Denies numbness, Denies weakness Psychiatric: Denies anxiety, Denies depression Endocrine: Denies fatigue, Denies weight change Exam: HEENT: Head is atraumatic, normocephalic, pupils were equal round reactive to light and accommodation , extraocular muscle movement were intact, NG tube in place, mucous membranes of the mouth are somewhat dry. Neck: Supple, no JVP. Chest: Decreased breath sounds at the bases otherwise clear to auscultation laterally there is no crackles no wheezes no chest wall tenderness no intercostal retractions. Heart: First heart sound is depressed, second heart sounds normal, there is no gallop or murmur. Abdomen: Soft, mild tenderness to the mid epigastric area as well as left lower quadrant, no rebound or guarding, there is depressed bowel sounds. Extremities: There is no edema, no calf tenderness, dorsalis pedis +2 bilaterally. Neurologic examination: Patient is awake alert and oriented 3, cranial nerves III through XII appear to be grossly intact, muscle power 4 out of 5 in upper and lower extremities bilaterally. - Labs CBC & Chem 7: 11/22/19 07:21 11/22/19 07:21 Labs: Abnormal Lab Results - Last 24 Hours (Table) 11/22/19 11/22/19 Range/Units 07:21 07:21 Plt Count 118 L (150-450) k/uL Lymphocytes # 0.9 L (1.0-4.8) k/uL Glucose 115 H (74-99) mg/dL Assessment and Plan Assessment: Assessment and plan: 1. Partial small bowel obstruction. We will continue with the NG tube for now we'll check and repeat flat plate of the abdomen with the upright position as well to check on follow-up of the small bowel, his NG tube output is Isa a lot over the last 4 hours, hopefully we'll try to clamp his NG tube at the patient walk around. 2. Hypertension and hypertensive cardio vascular disease. Patient blood pressure appears to be stable at this time we will hold off lisinopril for now. 3. Hyperlipidemia. We will hold Crestor for now. 4. History of CVA in the dissolution of the right middle cerebral artery. Hold the patient Plavix and Crestor for now. 5. Hypothyroidism. Switch the patient to levothyroxin 44 g IV push every day. 6. History of gout. Hold allopurinol. 7. History of depressive disorder. Hold Cymbalta. 8. DVT prophylaxis. Heparin 5000 units subcutaneously every 8 hours. 9. GI prophylaxis. Due to patient on Protonix 40 mg IV push every 24 hours. 10. Glaucoma. Continue patient on eyedrops. 11. We will continue to follow the patient along with the surgical service.
--- NOTE | 2019-11-22 11:33 | P.PN ---
Subjective Progress Note Date: 11/22/19 CHIEF COMPLAINT: Small bowel obstruction HISTORY OF PRESENT ILLNESS: The patient is a 79 year old male who has history of recurrent small bowel obstruction. He had generalized abdominal pain, now resolved. He is passing more flatus. "I feel like a new man!" No emesis. He has been NPO since admission yesterday. No bowel movement. Moderate decrease output from NGT from 800 to 45 mL today. Has dark aspirant in NG cannister. REVIEW OF ORGAN SYSTEMS: No fevers or chills. No nausea or vomiting. No chest pain. PHYSICAL EXAM: VITALS: Reviewed CONSTITUTIONAL: Well developed and in no acute distress. EYES: Conjuctivae without sclera icterus. Pupils are equally round and reactive to light. Extraocular movements grossly intact. HEAD, EARS, NOSE, THROAT: Moist buccal mucosa. Head is atraumatic, no rmocephalic. Hears conversational speech. No nasal drainage. NECK: Supple. No JV distention. No thyroidomegaly. RESPIRATORY: Non-labored respirations and equal bilateral excursions. No gross wheezes. CARDIOVASCULAR: Regular rate and rhythm. Extremities without moderate edema. Palpable 2+ radial pulses. ABDOMEN: Soft. Nontender. No peritonitis. Bilious output from NG tube at least 800 ml. MUSCULOSKELETAL: Nail and fingers with good capillary refill. SKIN: Warm and well perfused with good skin turgor. NEUROLOGIC: Cranial nerves II through XII grossly intact. Sensation upper and extremities intact. No focal or lateralizing signs. PSYCH: Appropriate affect. Alert and oriented to person, place and time. Displays appropriate insight. CLINCAL LABS: Reviewed. WBC 9.8 to 5.8 today. Platelets low at 125 to 118 today. Hgb 13.5 ASSESSMENT: 1. Small bowel obstruction 2. Gastritis PLAN: 1. Start clear liquid diet, and clamp NGT for today 2. Will repeat films for tomorrow. 3. Start Protonix for gastritis Objective - Vital Signs Vital signs: Vital Signs Temp 98.3 F 11/22/19 07:00 Pulse 73 11/22/19 07:00 Resp 18 11/22/19 07:00 BP 146/70 11/22/19 07:00 Pulse Ox 96 11/22/19 07:00 Intake & Output 11/21/19 11/22/19 11/22/19 18:59 06:59 18:59 Intake Total 1359 0 Output Total 1340 575 Balance 19 -575 Intake: IV 1359 Sodium Chloride 0.9% 1, 360 000 ml @ 60 mls/hr IV . [id number] RAMBO Rx#:[id number] Sodium Chloride 0.9% 1, 999 000 ml @ 999 mls/hr IV . Q1H1M ONE Rx#:[id number] Oral 0 Output: Gastric Drainage 75 Urine 1340 500 Other: # Voids 1 - Labs CBC & Chem 7: 11/22/19 07:21 11/22/19 07:21 Labs: Abnormal Lab Results - Last 24 Hours (Table) 11/22/19 11/22/19 Range/Units 07:21 07:21 Plt Count 118 L (150-450) k/uL Lymphocytes # 0.9 L (1.0-4.8) k/uL Glucose 115 H (74-99) mg/dL Assessment and Plan (1) History of laparotomy Current Visit: Yes Status: Acute Code(s): Z98.890 - OTHER SPECIFIED POSTPROCEDURAL STATES SNOMED Code(s): 234490767 (2) History of splenectomy Current Visit: Yes Status: Acute Code(s): Z90.81 - ACQUIRED ABSENCE OF SPLEEN SNOMED Code(s): 151998569 (3) Small bowel obstruction Current Visit: Yes Status: Acute Code(s): K56.609 - UNSP INTESTNL OBST, UNSP TO PARTIAL VERSUS COMPLETE OBST SNOMED Code(s): 281469555 (4) History of CVA (cerebrovascular accident) Current Visit: Yes Status: Acute Code(s): Z86.73 - PRSNL HX OF TIA (TIA), AND CEREB INFRC W/O RESID DEFICITS SNOMED Code(s): 714626317 (5) Hypothyroidism Current Visit: Yes Status: Acute Code(s): E03.9 - HYPOTHYROIDISM, UNSPECIFIED SNOMED Code(s): 25451363 (6) Obesity (BMI 30.0-34.9) Current Visit: Yes Status: Acute Code(s): E66.9 - OBESITY, UNSPECIFIED SNOMED Code(s): 199512430708639
[2019-11-23] MEDS: DEXTROSE 5%-0.9% NACL 1,000 ML IV SCH ×2 (02:44→21:01)
--- NOTE | 2019-11-23 08:12 | XR ---
EXAMINATION TYPE: XR abdomen acute w cxr DATE OF EXAM: 11/23/2019 COMPARISON: CT dated 11/20/2019 HISTORY: Bowel obstruction and pain TECHNIQUE: Single frontal chest x-ray, upright abdominal x-ray, and supine abdominal x-ray were obta ined. FINDINGS: There is again noted is left hemidiaphragm elevation. No focal consolidation, pleural effus ion or pneumothorax. Stable cardiomediastinal silhouette. Liver is elongated. Cholecystectomy clips a re seen. No current dilated large or small bowel. Few scattered air-fluid levels are seen within larg e and small bowel. Postsurgical change of the left hemipelvis and arthropathy of the hips and spine. Enteric tube is cephalad in placement terminating in the distal esophagus and should be advanced at l east 15 cm for optimal placement. IMPRESSION: 1. Cephalad placement of the enteric tube, which should be advanced at least 15 cm for optimal placem ent. 2. No dilated large or small bowel. Nonobstructive bowel gas pattern radiographically.
[2019-11-23] MEDS: HEPARIN SODIUM,PORCINE 5,000 UNIT/ML 1 ML VIAL SQ SCH ×2 (08:20→15:33)
[2019-11-23] MEDS: TIMOLOL 0.5% OPHTH DROPS 5 ML BTL BOTH EYES SCH (08:20)
[2019-11-23] MEDS: PANTOPRAZOLE 40 MG/10 ML VIAL IVP SCH (08:20)
--- NOTE | 2019-11-23 09:06 | P.PN ---
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, hyperthyroidism, gout, patient just got back from [place] about 2 weeks ago, he developed to have an increased abdominal pain around the upper part of the abdomen associated with increased nausea, the pain was so intense to the degree that he could not sit still he try to call my office yesterday at around 5:00 in the evening however he ended up coming to the emergency department for evaluation after he described this pain as waxing and waning, he gets to the p oint that it can get up to 10 out of 10 in intensity and the patient ended up seeing the ER had a chest x-ray initially that showed minimal atelectasis in the left lower lobe followed by computed tomography scan of the abdomen and pelvis with contrast that documented a partial small bowel obstruction with a transition point in the left lower quadrant, patient was seen in consultation by general surgery and the patient had an NG tube placed and he was started on IV fluid resuscitation, we will continue to monitor the patient very closely hopefully will continue with conservative approach and if it need be general surgery is on the consult as a standby. Patient did have this happen about in [place] and the last time he ended up staying in the hospital for 72 hour before he went back to normal. 11/21: He shouldn't is sitting up in bed in no apparent distress he continues to have his NG tube in place, his abdominal pain is a lot better his NG tube output to the increased by 50 mL over the last 3 hours, with a total of 400 since last night, patient will have an abdominal x-ray to evaluate for small bowel obstruction, patient stated that he has no chest pain or sores with this time, he feeling better, we will try to do the x-ray first and if the x-ray did not show any evidence of a bowel obstruction then we will clamp his NG tube and that the patient walk around we'll admit and try to offer him some ice chips otherwise we will continue with the same treatment until next 24 hours then reevaluate. 11/22: Patient remains with NG tube is in place but this is not hooked to suc tion at the time of evaluation. Subsequently, patient accidentally removed NG tube during a sneeze. Patient is passing gas. He denies any abdominal pain. He does have good bowel sounds. X-ray this morning revealed no dilated large or small bowel. Nonobstructive bowel gas pattern. Anticipate that diet will be advanced today and possible discharge tomorrow. Patient has been afebrile, heart rate 64, blood pressure 120/70, pulse ox 94% on room air. Objective - Vital Signs Vital signs: Vital Signs Temp 98.2 F 11/23/19 07:00 Pulse 64 11/23/19 07:00 Resp 16 11/23/19 07:00 BP 128/70 11/23/19 07:00 Pulse Ox 94 L 11/23/19 07:00 Intake & Output 11/22/19 11/23/19 11/23/19 18:59 06:59 18:59 Intake Total 200 100 Balance 200 100 Intake: Oral 200 100 Other: Voiding Method Toilet Urinal # Voids 1 - Exam Review of Systems Constitutional: Reports weakness, Denies anorexia, Denies chronic headaches, Denies chronic pain, Denies fatigue, Denies weight gain, Denies weight loss Ears: deny: decreased hearing Ears, nose, mouth and throat: Reports sore throat, Denies dysphagia, Denies neck lump Cardiovascular: Denies chest pain, Denies decreased exercise tolerance, Denies leg edema, Denies lightheadedness, Denies rapid heart beat, Denies shortness of breath, Denies syncope Respiratory: Denies congestion, Denies cough with sputum, Denies home oxygen, Denies respiratory infections, Denies snoring, Denies wheezing Gastrointestinal: Denies abdominal pain, Reports change in bowel habits, Denies loss of appetite, Denies nausea, Denies belching, Denies bloating, Denies diarrhea, Denies dyspepsia, Denies early satiety, Denies excessive gas, Denies heartburn, Denies hematemesis, Denies lactose intolerance, Denies melena, Denies vomiting Genitourinary: Denies dysuria, Denies nocturia Musculoskeletal: Denies myalgias Musculoskeletal: absent: ankle pain, ankle stiffness, ankle swelling, elbow pain, elbow stiffness, elbow swelling, foot pain, foot stiffness, foot swelling, hand pain, hand stiffness, hand swelling, hip pain, hip stiffness, hip swelling, knee pain, knee stiffness, knee swelling, shoulder pain, shoulder stiffness, shoulder swelling, wrist pain, wrist stiffness, wrist swelling Integumentary: Denies pruritus, Denies rash Neurological: Denies numbness, Denies weakness Psychiatric: Denies anxiety, Denies depression Endocrine: Denies fatigue, Denies weight change Physical Exam: HEENT: Head is atraumatic, normocephalic, pupils were equal round reactive to light and accommodation , extraocular muscle movement were intact, NG tube in place, mucous membranes of the mouth are somewhat dry. Neck: Supple, no JVP. Chest: Decreased breath sounds at the bases otherwise clear to auscultation laterally there is no crackles no wheezes no chest wall tenderness no intercostal retractions. Heart: First heart sound is depressed, second heart sounds normal, there is no gallop or murmur. Abdomen: Soft, no tenderness, no rebound or guarding, normal bowel sounds. Extremities: There is no edema, no calf tenderness, dorsalis pedis +2 bilaterally. Neurologic examination: Patient is awake alert and oriented 3, cranial nerves III through XII appear to be grossly intact, muscle power 4 out of 5 in upper and lower extremities bilaterally. - Labs CBC & Chem 7: 11/22/19 07:21 11/22/19 07:21 Labs: Abnormal Lab Results - Last 24 Hours (Table) 11/22/19 11/22/19 Range/Units 07:21 07:21 Plt Count 118 L (150-450) k/uL Lymphocytes # 0.9 L (1.0-4.8) k/uL Glucose 115 H (74-99) mg/dL Assessment and Plan Plan: 1. Partial small bowel obstruction. NG tube removed. Anticipate diet to be started. 2. Hypertension and hypertensive cardiovascular disease. Patient blood pressure appears to be stable at this time we will hold off lisinopril for now. 3. Hyperlipidemia. We will hold Crestor for now. 4. History of CVA in the dissolution of the right middle cerebral artery. Hold the patient Plavix and Crestor for now. 5. Hypothyroidism. Switch the patient to levothyroxin 44 g IV push every day. 6. History of gout. Hold allopurinol. 7. History of depressive disorder. Hold Cymbalta. 8. DVT prophylaxis. Heparin 5000 units subcutaneously every 8 hours. 9. GI prophylaxis. Due to patient on Protonix 40 mg IV push every 24 hours. 10. Glaucoma. Continue patient on eyedrops. Discharge plan: Home Impression and plan of care have been directed as dictated by the signing physician. Carlee Arguelles nurse practitioner acting as scribe for signing physician.
--- NOTE | 2019-11-23 12:37 | P.PN ---
<Lacie Balderas A - Last Filed: 11/23/19 12:34> Subjective Progress Note Date: 11/23/19 CHIEF COMPLAINT: Small bowel obstruction HISTORY OF PRESENT ILLNESS: Patient examined this morning the bedside. Patient states his NG tube accidentally fell out this morning while he was sneezing. He is tolerating clear liquid diet. Denies nausea or vomiting. He denies abdominal pain. He reports passing flatus and having a small bowel movement today. PHYSICAL EXAM: VITAL SIGNS: Reviewed GENERAL: Well-developed in no acute distress. HEENT: No sclera icterus. Extraocular movements grossly intact. Moist buccal mucosa. Head is atraumatic, normocephalic. Hears conversational speech. No nasal drainage. NECK: Supple without lymphadenopathy. CHEST: Non-labored respirations and equal bilateral excursions. CARDIOVASCULAR: Regular rate with regular rhythm. Palpable 2+ radial pulses. ABDOMEN: Soft. Nondistended. Nontender. MUSCULOSKELETAL: No clubbing or cyanosis. NEUROLOGIC: No focal or lateralizing signs. Cranial nerves II through XII grossly intact. PSYCH: Appropriate affect. Alert and oriented to person, place and time. SKIN: Well perfused. Good skin turgor. ASSESSMENT: 1. Small bowel obstruction PLAN: -Advance diet to full liquid diet. If patient tolerates, may advance to regular diet -If patient tolerates diet he may be discharged home from a surgical standpoint. Will defer to internal medicine Nurse practitioner note has been reviewed by physician. Signing provider agrees with the documented findings, assessment, and plan of care. Objective - Vital Signs Vital signs: Vital Signs Temp 98.2 F 11/23/19 07:00 Pulse 64 11/23/19 08:27 Resp 16 11/23/19 08:27 BP 128/70 11/23/19 07:00 Pulse Ox 94 L 11/23/19 07:00 Intake & Output 11/22/19 11/23/19 11/23/19 18:59 06:59 18:59 Intake Total 200 100 320 Balance 200 100 320 Intake: Oral 200 100 320 Other: Voiding Method Toilet Toilet Urinal Urinal # Voids 1 - Labs CBC & Chem 7: 11/22/19 07:21 11/22/19 07:21 <Enriqueta Lizama N - Last Filed: 11/24/19 16:55> Subjective Patient seen and evaluated with above. Agree with nurse practitioner. I did review the patient that he had a transition point on computed tomography scan that well likely need surgical intervention in the future. At this time his bowel obstruction has resolved. Recommend follow-up as outpatient. Objective - Vital Signs Vital signs: Vital Signs Temp 97.7 F 11/24/19 07:00 Pulse 59 L 11/24/19 07:00 Resp 18 11/24/19 07:00 BP 152/74 11/24/19 07:00 Pulse Ox 96 11/24/19 07:00 Intake & Output 11/23/19 11/24/19 11/24/19 18:59 06:59 18:59 Intake Total 640 320 Balance 640 320 Intake: Oral 640 320 Other: Voiding Method Toilet Toilet Urinal Urinal # Voids 3 2 - Labs CBC & Chem 7: 11/22/19 07:21 11/22/19 07:21 Assessment and Plan (1) History of laparotomy Status: Acute Code(s): Z98.890 - OTHER SPECIFIED POSTPROCEDURAL STATES SNO MED Code(s): 471749843 (2) History of splenectomy Status: Acute Code(s): Z90.81 - ACQUIRED ABSENCE OF SPLEEN SNOMED Code(s): 848081436 (3) Small bowel obstruction Status: Acute Code(s): K56.609 - UNSP INTESTNL OBST, UNSP TO PARTIAL VERSUS COMPLETE OBST SNOMED Code(s): 366552376 (4) History of CVA (cerebrovascular accident) Status: Acute Code(s): Z86.73 - PRSNL HX OF TIA (TIA), AND CEREB INFRC W/O RESID DEFICITS SNOMED Code(s): 877907005 (5) Hypothyroidism Status: Acute Code(s): E03.9 - HYPOTHYROIDISM, UNSPECIFIED SNOMED Code(s): 97721575 (6) Obesity (BMI 30.0-34.9) Status: Acute Code(s): E66.9 - OBESITY, UNSPECIFIED SNOMED Code(s): 485972639848010
[2019-11-23 19:31] VITALS: RESP 18
[2019-11-24] MEDS: HEPARIN SODIUM,PORCINE 5,000 UNIT/ML 1 ML VIAL SQ SCH ×2 (01:58→10:13)
[2019-11-24] MEDS: DEXTROSE 5%-0.9% NACL 1,000 ML IV SCH (01:58)
[2019-11-24 08:20] VITALS: BP 152/74; PULSE 59; TEMP 97.7
[2019-11-24] MEDS: PANTOPRAZOLE 40 MG/10 ML VIAL IVP SCH (08:27)
[2019-11-24] MEDS: TIMOLOL 0.5% OPHTH DROPS 5 ML BTL BOTH EYES SCH (08:27)
[2019-11-24] MEDS ORDERED: CLOPIDOGREL 75 MG TAB PO SCH (09:00)
[2019-11-24] MEDS ORDERED: DULoxetine HCL 30 MG CAPSULE.DR PO SCH (09:00)
[2019-11-24] MEDS ORDERED: LEVOTHYROXINE 88 MCG TAB PO SCH (09:00)
--- NOTE | 2019-11-24 09:10 | P.DS ---
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, hyperthyroidism, gout, patient just got back from [place] about 2 weeks ago, he developed to have an increased abdominal pain around the upper part of the abdomen associated with increased nausea, the pain was so intense to the degree that he could not sit still he try to call my office yesterday at around 5:00 in the evening however he ended up coming to the emergency department for evaluation after he described this pain as waxing and waning, he gets to the point that it can get up to 10 out of 10 in intensity and the patient ended up seeing the ER had a chest x-ray initially that showed minimal atelectasis in the left lower lobe followed by computed tomography scan of the abdomen and pelvis with contrast that documented a partial small bowel obstruction with a transition point in the left lower quadrant, patient was seen in consultation by general surgery and the patient had an NG tube placed and he was started on IV fluid resuscitation, we will continue to monitor the patient very closely hopefully will continue with conservative approach and if it need be general surgery is on the consult as a standby. Patient did have this happen about twice in [place] and the last time he ended up staying in the hospital for 72 hour before he went back to normal. 11/21: He shouldn't is sitting up in bed in no apparent distress he continues to have his NG tube in place, his abdominal pain is a lot better his NG tube output to the increased by 50 mL over the last 3 hours, with a total of 400 since last night, patient will have an abdominal x-ray to evaluate for small bowel obstruction, patient stated that he has no chest pain or sores with this time, he feeling better, we will try to do the x-ray first and if the x-ray did not show any evidence of a bowel obstruction then we will clamp his NG tube and that the patient walk around we'll admit and try to offer him some ice chips otherwise we will continue with the same treatment until next 24 hours then reevaluate. 11/22: Patient remains with NG tube is in place but this is not hooked to suction at the time of evaluation. Subsequently, patient accidentally removed NG tube during a sneeze. Patient is passing gas. He denies any abdominal pain. He does have good bowel sounds. X-ray this morning revealed no dilated large or small bowel. Nonobstructive bowel gas pattern. Anticipate that diet will be advanced today and possible discharge tomorrow. Patient has been afebrile, heart rate 64, blood pressure 120/70, pulse ox 94% on room air. 11/23: Patient tolerated full liquid diet yesterday with no nausea or vomiting. He has been advanced to regular diet today. We will resume Plavix and Cymbalta today prior to discharge. He has been afebrile, heart rate 62, blood pressure 137/65, pulse ox 96% on room air. Patient is passing gas, voiding without difficulty. He has been cleared for discharge by general surgery. Patient will be discharged home today in stable condition. Discharge diagnoses: 1. Partial small bowel obstruction. 2. Hypertension and hypertensive cardiovascular disease. 3. Hyperlipidemia. 4. History of CVA in the dissolution of the right middle cerebral artery. 5. Hypothyroidism. 6. History of gout. 7. History of depressive disorder. 8. Glaucoma. Discharge plan: Home Impression and plan of care have been directed as dictated by the signing physician. Carlee Arguelles nurse practitioner acting as scribe for signing physician. Patient Condition at Discharge: Good Plan - Discharge Summary Discharge Rx Participant: Yes New Discharge Prescriptions: Continue DULoxetine HCL [Cymbalta] 30 mg PO DAILY Allopurinol [Zyloprim] 100 mg PO BID Vit C/E/Zn/Coppr/Lutein/Zeaxan [Preservision Areds 2 Softgel] 1 cap PO BID Levothyroxine Sodium [Synthroid] 88 mcg PO DAILY Clopidogrel [Plavix] 75 mg PO DAILY #30 tab Ubidecarenone [Co Q-10] 200 mg PO DAILY Multivitamins, Thera [Multivitamin (formulary)] 1 tab PO DAILY Vitamin B Complex 1 cap PO DAILY Timolol 0.5% Ophth Soln [Timoptic 0.5% Ophth Soln] 1 drop BOTH EYES DAILY Rosuvastatin Calcium [Crestor] 10 mg PO HS [place]-3 Fatty Acids [[place]-3] 1,000 mg PO BID Lisinopril [Zestril] 2.5 mg PO DAILY Cholecalciferol (Vitamin D3) [Vitamin D3] 125 mcg PO DAILY Discharge Medication List Allopurinol [Zyloprim] 100 mg PO BID 04/04/15 [History] DULoxetine HCL [Cymbalta] 30 mg PO DAILY 04/04/15 [History] Levothyroxine Sodium [Synthroid] 88 mcg PO DAILY 03/08/18 [History] Vit C/E/Zn/Coppr/Lutein/Zeaxan [Preservision Areds 2 Softgel] 1 cap PO BID 03/08/18 [History] Clopidogrel [Plavix] 75 mg PO DAILY #30 tab 03/09/18 [Rx] Multivitamins, Thera [Multivitamin (formulary)] 1 tab PO DAILY 03/24/18 [History] Ubidecarenone [Co Q-10] 200 mg PO DAILY 03/24/18 [History] Cholecalciferol (Vitamin D3) [Vitamin D3] 125 mcg PO DAILY 11/20/19 [History] Lisinopril [Zestril] 2.5 mg PO DAILY 11/20/19 [History] [place]-3 Fatty Acids [[place]-3] 1,000 mg PO BID 11/20/19 [History] Rosuvastatin Calcium [Crestor] 10 mg PO HS 11/20/19 [History] Timolol 0.5% Ophth Soln [Timoptic 0.5% Ophth Soln] 1 drop BOTH EYES DAILY 11/20/19 [History] Vitamin B Complex 1 cap PO DAILY 11/20/19 [History] Follow up Appointment(s)/Referral(s): Prosper Lowe MD [Primary Care Provider] - 1 Week Enriqueta Lizama MD [STAFF PHYSICIAN] - 12/08/19 Discharge Disposition: HOME SELF-CARE
== END 2019-11-24 14:04 | disposition home or self-care (01) | DRG 390 ==
LOC: EC 18:07 → 4SSUR 21:44
PROVIDERS: ADMIT Internal Medicine; ATTEND Internal Medicine
PROC: 0D9670Z Drainage of Stomach with Drainage Device, Via Natural or Artificial Opening (ICD-10-PCS; principal; 2019-11-24)
DX: K56.600 Partial intestinal obstruction, unspecified as to cause (principal); E03.9 Hypothyroidism, unspecified; F32.9 Major depressive disorder, single episode, unspecified; E78.5 Hyperlipidemia, unspecified; M10.9 Gout, unspecified; H40.9 Unspecified glaucoma; I11.9 Hypertensive heart disease without heart failure; K29.70 Gastritis, unspecified, without bleeding; E66.9 Obesity, unspecified; Z11.59 Encounter for screening for other viral diseases; Z82.1 Family history of blindness and visual loss; Z79.890 Hormone replacement therapy; Z79.02 Long term (current) use of antithrombotics/antiplatelets; Z79.899 Other long term (current) drug therapy; Z86.73 Personal history of transient ischemic attack (TIA), and cerebral infarction without residual deficits; Z87.891 Personal history of nicotine dependence; Z90.49 Acquired absence of other specified parts of digestive tract; Z90.89 Acquired absence of other organs; Z98.890 Other specified postprocedural states; Z90.81 Acquired absence of spleen; Z68.33 Body mass index [BMI] 33.0-33.9, adult
CPT/HCPCS: 36415; 71045; 74022; 74177; 80053; 81003; 82150; 83605; 83690; 85025; 85610; 85730; 87635; 96361; 96374; 96375; 99285

== ENCOUNTER → 2019-11-27 | Outpatient (CLI) | payer MEDICARE ==
--- NOTE | 2019-11-27 16:25 | XR ---
EXAMINATION TYPE: XR knee complete LT DATE OF EXAM: 11/27/2019 COMPARISON: None HISTORY: Medial swelling left knee TECHNIQUE: Three-view left knee FINDINGS: No acute fractures are evident. Old fracture of the proximal diaphyseal fibula is noted. No joint effusion is evident. There is some mild narrowing of the medial compartment joint space. IMPRESSION: 1. No acute posttraumatic changes
== END | disposition home or self-care (01) ==
LOC: RADXRMAIN 15:41
PROVIDERS: ATTEND Internal Medicine
DX: M25.562 Pain in left knee (principal)

== ENCOUNTER 2021-01-28 23:19 | Inpatient (IN) | payer MEDICARE ==
[2021-01-28] MEDS ORDERED: SODIUM CHLORIDE 0.9% 1,000 ML IV STA (23:36)
[2021-01-28] MEDS ORDERED: ONDANSETRON 4 MG/2 ML VIAL IVP STA (23:36)
[2021-01-28] MEDS ORDERED: HYDROmorphone 0.5 MG/0.5 ML SYRINGE IVP STA (23:36)
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
[2021-01-29 00:08] LABS: Basophils % (A) 0 %; Eosinophils # (A) 0.1 k/uL (0-0.7); Eosinophils % (A) 1 %; HCT 49.5 % (39.0-53.0); HGB 16.9 gm/dL (13.0-17.5); Lymphocytes # (A) 0.8 k/uL (1.0-4.8); Lymphocytes % (A) 8 %; MCH 32.7 pg (25.0-35.0); MCHC 34.1 g/dL (31.0-37.0); Mean Platelet Volume 7.5; Monocytes # (A) 0.4 k/uL (0-1.0); Monocytes % (A) 4 %; Neutrophils # (A) 8.5 k/uL (1.3-7.7); Neutrophils % (A) 87 %; Platelet Count 126 k/uL (150-450); RBC 5.16 m/uL (4.30-5.90); RDW 12.7 % (11.5-15.5); WBC 9.8 k/uL (3.8-10.6)
--- NOTE | 2021-01-29 00:19 | XR ---
EXAMINATION TYPE: XR KUB DATE OF EXAM: 01/29/2021 COMPARISON: 11/23/2019 HISTORY: Abdominal pain TECHNIQUE: 2 views FINDINGS: There is no sign of intestinal obstruction or pneumoperitoneum. Fecal pattern is normal. Th ere are clips from cholecystectomy. There is blunting of the left costophrenic angle. There is plate with screws fixing the left acetabulum. There is small bowel fluid level in the left upper quadrant. IMPRESSION: There is some pleural reaction and atelectasis left lung base. This appears similar to th e old chest x-ray of 11/23/2019. There is evidence for some minimal small bowel ileus that appears new compared to old exam..
[2021-01-29 00:21] LABS: Albumin 4.8 g/dL (3.5-5.0); Calcium 10.1 mg/dL (8.4-10.2); Potassium 4.9 mmol/L (3.5-5.1); Total Bilirubin 0.9 mg/dL (0.2-1.3); Total Protein 7.4 g/dL (6.3-8.2)
[2021-01-29 01:31] LABS: Appearance,Urine Clear (Clear); Bacteria,Urine Rare /hpf; Bilirubin,Urine Negative (Negative); Blood,Urine Negative (Negative); Color,Urine Yellow; Glucose,Urine (UA) Negative (Negative); Hyaline Casts,Urine 11 /lpf (0-2); Ketones,Urine Negative (Negative); Leukocyte Esterase,Urine Trace (Negative); Mucus,Urine Rare /hpf; Nitrite,Urine Negative (Negative); PH, Urine 6.5 (5.0-8.0); Protein,Urine 1+ (Negative); RBC,Urine 3 /hpf (0-5); Specific Gravity,Urine 1.019 (1.001-1.035); Squamous Epithelial Cell,Urine 1 /hpf (0-4); Urobilinogen,Urine <2.0 mg/dL (<2.0); WBC,Urine 7 /hpf (0-5)
--- NOTE | 2021-01-29 01:53 | CT ---
EXAMINATION TYPE: CT abdomen pelvis w con DATE OF EXAM: 01/29/2021 COMPARISON: 11/20/2019 HISTORY: Abdominal pain CT DLP: 1734.4 mGycm Automated exposure control for dose reduction was used. CONTRAST: Performed with IV Contrast, patient injected with 100 mL of Isovue 300. Images obtained from the diaphragm to the floor the pelvis with IV contrast Heart size is normal. There is no pericardial effusion. There is some atelectasis left lung base with elevation of the left diaphragm. There are multiple calcified splenic granulomata. Stomach is dilate d with fluid. I see no evidence of pancreatic mass. There are clips from cholecystectomy. The bile du cts are not dilated. The liver has normal size and contour. There is no adrenal mass. Kidneys show satisfactory contrast opacification. There is no hydronephrosi s. There is normal excretion on the delayed images. There is no retroperitoneal adenopathy. Bladder d istends smoothly. There is no inguinal hernia. There is no free fluid in the pelvis. There is plate w ith multiple screws fixing old left acetabular fracture. There are multiple dilated fluid-filled small bowel loops in the mid and upper abdomen. Distal small bowel is not dilated. Transition point not identified. Small bowel is dilated up to 3.4 cm. There is no mesenteric edema. There is no ascites or free air. Appendix is not seen. There is no sign of thickened appendix. The lumbar vertebra have normal alignment. There is no compression fracture. There is vacuum disc at L4-5 and L5-S1. The bony pelvis is intact. The hip joints are intact. IMPRESSION: Dilated small bowel. Transition point not identified. This could relate to partial mechanical obstruc tion or small bowel ileus. Small bowel dilation also present on old exam and appears more extensive o n today's exam.
[2021-01-29] MEDS ORDERED: NALOXONE 0.4 MG/ML 1 ML VIAL IV PRN (02:39)
[2021-01-29] MEDS ORDERED: ONDANSETRON 4 MG/2 ML VIAL IVP PRN (02:39)
[2021-01-29] MEDS ORDERED: HYDROmorphone 0.5 MG/0.5 ML SYRINGE IVP PRN (02:39)
[2021-01-29] MEDS ORDERED: ONDANSETRON 4 MG/2 ML VIAL IVP STA (03:30)
[2021-01-29] MEDS ORDERED: HYDROmorphone 1 MG/ML 1 ML SYRINGE IVP STA (03:30)
[2021-01-29] MEDS: SODIUM CHLORIDE 0.9% 1,000 ML IV SCH ×2 (03:57→08:16)
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
[2021-01-29] MEDS: PANTOPRAZOLE 40 MG/10 ML VIAL IVP SCH (11:58)
--- NOTE | 2021-01-29 15:19 | XR ---
EXAMINATION TYPE: XR abdomen complete w decub DATE OF EXAM: 01/29/2021 COMPARISON: 01/29/2021 HISTORY: 80 years Male. STUDY INDICATION GIVEN: Small bowel obstruction TECHNIQUE: Supine and upright abdominal radiographs FINDINGS AND IMPRESSION: No free abdominal air. Multiple air-fluid levels are demonstrated in the small bowel. No extremely enlarged bowel loops seen to indicate complete bowel obstruction however an element of s mall bowel partial obstruction or ileus cannot be excluded especially that contrast sitting in the ur inary bladder obscures rectal [place]. Moderate amount of stool noted in the colon. Cholecystectomy clips seen in the right upper quadrant. No abnormal calcifications or evidence of organomegaly. No acute osseous abnormality. Postsurgical changes seen in the left pelvic bones. There is generalize d osteopenia and degenerative changes in lower lumbar spine. Nasogastric tube projects over the left upper abdomen. Recommend correlation with CT of the abdomen and pelvis from the same day.
[2021-01-29] MEDS: HEPARIN SODIUM,PORCINE/PF 5,000 UNIT/0.5 ML SYRINGE SQ SCH (15:52)
[2021-01-29] MEDS: ATORVASTATIN 20 MG TAB PO SCH (20:55)
[2021-01-29] MEDS: allopurinoL 100 MG TAB PO SCH (20:55)
[2021-01-29] MEDS ORDERED: ACETAMINOPHEN TAB 325 MG TAB PO PRN (21:15)
[2021-01-30] MEDS: HEPARIN SODIUM,PORCINE/PF 5,000 UNIT/0.5 ML SYRINGE SQ SCH ×3 (02:21→16:43)
[2021-01-30] MEDS: LEVOTHYROXINE 88 MCG TAB PO SCH (05:44)
[2021-01-30] MEDS: SODIUM CHLORIDE 0.9% 1,000 ML IV SCH ×2 (05:44→20:32)
[2021-01-30 06:56] LABS: Glucose,Whole Blood 109 mg/dL (75-99)
[2021-01-30] MEDS: PANTOPRAZOLE 40 MG/10 ML VIAL IVP SCH (07:15)
[2021-01-30] MEDS: TIMOLOL 0.5% OPHTH DROPS 5 ML BTL BOTH EYES SCH (07:15)
[2021-01-30] MEDS: DULoxetine HCL 30 MG CAPSULE.DR PO SCH (10:04)
[2021-01-30] MEDS: allopurinoL 100 MG TAB PO SCH ×2 (10:05→20:27)
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
[2021-01-30 11:29] LABS: Basophils # (A) 0.02 X 10*3/uL (0.00-0.10); Basophils % (A) 0.3 %; Eosinophils # (A) 0.11 X 10*3/uL (0.04-0.35); Eosinophils % (A) 1.8 %; HCT 39.3 % (39.6-50.0); HGB 13.1 g/dL (13.0-17.0); Lymphocytes # (A) 1.19 X 10*3/uL (0.90-5.00); Lymphocytes % (A) 19.1 %; MCH 32.7 pg (27.0-32.0); MCHC 33.3 g/dL (32.0-37.0); Mean Platelet Volume 10.2 fL (9.5-12.2); Monocytes # (A) 0.54 X 10*3/uL (0.20-1.00); Monocytes % (A) 8.7 %; Neutrophils # (A) 4.35 X 10*3/uL (1.80-7.70); Neutrophils % (A) 69.8 %; Platelet Count 108 X 10*3/uL (140-440); RBC 4.01 X 10*6/uL (4.40-5.60); RDW 12.8 % (11.5-14.5); WBC 6.23 X 10*3/uL (4.50-10.00)
[2021-01-30 11:45] LABS: African American GFR (CKD) 60.6 (60.0-200.0); Albumin 3.7 g/dL (3.80-4.90); Albumin/Globulin Ratio 1.95 (1.60-3.17); Anion Gap 8.2 mmol/L (4.00-12.00); BUN/Creat Ratio 11.54 Ratio (12.00-20.00); Calcium 8.2 mg/dL (8.7-10.3); Carbon Dioxide 25.8 mmol/L (21.6-31.8); Globulin 1.9 g/dL (1.6-3.3); Non-African American GFR(CKD) 52.3 (60.0-200.0); Potassium 3.9 mmol/L (3.5-5.5); Total Bilirubin 0.8 mg/dL (0.2-1.2); Total Protein 5.6 g/dL (6.2-8.2)
[2021-01-30] MEDS: VIT A,C & E-LUTEIN-MINERALS 1 EACH TAB PO SCH ×2 (12:08→20:27)
--- NOTE | 2021-01-30 12:46 | P.PN ---
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, hyperthyroidism, gout, patient presented to the emergency department at [facility] yesterday with increased without associated with nausea and vomiting patient had another episode about a year ago in November 2019 with increased bowel pain associated with nausea and vomiting was diagnosed with a partial small bowel obstruction that was resolved without any surgical intervention because the patient did not want to go for any surgery at this time patient was seen and evaluated in the emergency department had an abdominal x-ray showed ileus this was followed by a computed tomography scan of the abdomen and pelvis with contrast that that showed that it is small bowel without evidence of transition point however there is suggestion of possible partial small bowel obstruction versus an ileus patient was admitted to the hospital and general surgery consultation was obtained from Dr. Cintron. 01/30: Abdominal x-ray completed yesterday afternoon revealed multiple air fluid levels are demonstrated in the small bowel. No extremely enlarged bowel loops seen to indicate complete bowel obstruction however element of small bowel p artial obstruction or ileus cannot be excluded. Blood pressure this morning was 99/49. She's been afebrile, heart rate in the 70s and 80s, pulse ox 95% on room air. He is currently on IV fluids 0.9 normal saline at 125 mL per hour. Patient was seen this morning by Dr. Cintron and NG tube removed and patient was started on clear liquid diet. REVIEW OF SYSTEMS: Constitutional: No documented fever, no chills, no night sweats. No weight change. No weakness, fatigue or lethargy. No daytime sleepiness. HEENT: No headache. No blurred vision or double vision, no loss of vision. No loss of Hearing, no ringing in the ears, no dizziness. No nasal drainage or congestion. No epistaxis. No sore throat. Lungs: No shortness of breath, no cough, no sputum production. No wheezing. Reports dyspnea with activity. Cardiovascular: No chest pain, no lower extremity edema. No palpitations. No paroxysmal nocturnal dyspnea. No orthopnea. No lightheadedness or dizziness. No syncopal episodes. Abdominal: Reports abdominal pain. positive for nausea, vomiting. No diarrhea. No constipation. No bloody or tarry stools reports loss of appetite. Genitourinary: No dysuria, increased frequency, urgency. No urinary retention. Musculoskeletal: No myalgias. No muscle weakness, no gait dysfunction, no frequent falls. No back pain. No neck pain. Integumentary: No wounds, no lesions. No rash or pruritus. No unusual bruising. No change in hair or nails. Neurologic: No aphasia. No facial droop. No change in mentation. No head injury. No headache. No paralysis. No paresthesia. Psychiatric: No depression. No anxiety. No mood swings. Endocrine: No abnormal blood sugars. No weight change. PHYSICAL EXAMINATION: General: 80-year-old male laying down in bed in no apparent distress. HEENT: Head is atraumatic, normocephalic, pupils were equal round reactive to light and recommendation, extraocular muscle movement were intact, sclera nonicteric, conjunctivae were pale, mucous membranes of the mouth are somewhat dry,NGT in place Neck: Supple, no JVP, normal carotid upstroke bilaterally, no lymphadenopathy. Chest: Decreased breath sounds at the bases, few rhonchi, no expiratory wheezes, no chest wall tenderness, no intercostal retractions. Heart: First heart sound is normal, second heart sounds normal, there is systolic ejection murmur 2/6 located in the left sternal border. Abdomen: Soft, moderate distention moderate nonspecific tenderness, no rebound or guarding positive bowel sounds no hepatosplenomegaly. Extremities: There is no edema no calf tenderness DP +2 bilaterally. Neurologic examination: Patient is awake alert and oriented X3, cranial nerves II-12 appear grossly intact, muscle power were 5 out of 5 in upper extremities and 5 out of 5 in bilateral lower extremities, deep tendon reflexes normal bilaterally. ASSESSMENT AND PLAN: 1. Partial small bowel obstruction. This is the second episode since November 2019. Patient has been seen by Dr. Cintron, NG tube removed this morning and patient started on clear liquid diet. 2. Hypertension and hypertensive cardiovascular disease. Continue patient on lisinopril 2.5 mg every day. Monitor the patient very closely. 3. Hyperlipidemia. Continue patient on Crestor 10 mg orally once every day. 4. Hypothyroidism. Continue patient on Synthroid 88 MG orally once every day. 5. Gout, chronic. Continue allopurinol 200 mg orally once every day. 6. Depressive disorder. Continue Cymbalta 30 mg orally once every day. 7. Enlarged prostate monitor for urinary retention. 8. Glaucoma. Continue current eyedrops and PreserVision. 9. DVT prophylaxis. Heparin 5000 units subcutaneously every 8 hours. 10. GI prophylaxis. Continue with Protonix 40 mg IV push every 24 hours. 11. Patient is full code. DISCHARGE PLAN Home Impression and plan of care have been directed as dictated by the signing physician. Carlee Arguelles nurse practitioner acting as scribe for signing physician. Objective - Vital Signs Vital signs: Vital Signs Temp 98.9 F 01/30/21 02:00 Pulse 78 01/30/21 02:00 Resp 16 01/30/21 02:00 BP 99/49 01/30/21 02:00 Pulse Ox 95 01/30/21 02:00 Intake & Output 01/29/21 01/30/21 01/30/21 18:59 06:59 18:59 Weight 104.326 kg Other: Voiding Method Toilet # Voids 3 0 - Labs CBC & Chem 7: 01/30/21 05:47 01/30/21 05:47 Labs: Abnormal Lab Results - Last 24 Hours (Table) 01/30/21 Range/Units 06:54 POC Glucose (mg/dL) 109 H (75-99) mg/dL
[2021-01-30] MEDS: ATORVASTATIN 20 MG TAB PO SCH (20:27)
[2021-01-31] MEDS: HEPARIN SODIUM,PORCINE/PF 5,000 UNIT/0.5 ML SYRINGE SQ SCH ×2 (02:01→07:53)
[2021-01-31] MEDS: LEVOTHYROXINE 88 MCG TAB PO SCH (05:32)
--- NOTE | 2021-01-31 07:43 | P.DS ---
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, hyperthyroidism, gout, patient presented to the emergency department at [facility] yesterday with increased without associated with nausea and vomiting patient had another episode about a year ago in November 2019 with increased bowel pain associated with nausea and vomiting was diagnosed with a partial small bowel obstruction that was resolved without any surgical intervention because the patient did not want to go for any surgery at this time patient was seen and evaluated in the emergency department had an abdominal x-ray showed ileus this was followed by a computed tomography scan of the abdomen and pelvis with contrast that that showed that it is small bowel without evidence of transition point however there is suggestion of possible partial small bowel obstruction versus an ileus patient was admitted to the hospital and general surgery consultation was obtained from Dr. Cintron. 01/30: Abdominal x-ray completed yesterday afternoon revealed multiple air fluid levels are demonstrated in the small bowel. No extremely enlarged bowel loops seen to indicate complete bowel obstruction however element of small bowel partial obstruction or ileus cannot be excluded. Blood pressure this morning was 99/49. She's been afebrile, heart rate in the 70s and 80s, pulse ox 95% on room air. He is currently on IV fluids 0.9 normal saline at 125 mL per hour. Patient was seen this morning by Dr. Cintron and NG tube removed and patient was started on clear liquid diet. 01/31: Patient is tolerating full liquid diet without any difficulty. No nausea or vomiting. We will advance his diet to soft and plan for the patient be discharged this afternoon after lunch. Patient has been afebrile, heart rate 65, blood pressure 134/75, pulse ox 96% on room air. Patient will be discharged home in stable condition. ASSESSMENT AND PLAN: 1. Partial small bowel obstruction. 2. Hypertension and hypertensive cardiovascular disease. 3. Hyperlipidemia. 4. Hypothyroidism. 5. Gout, chronic. 6. Depressive disorder. 7. Enlarged prostate. 8. Glaucoma. 9. History of CVA/TIA. DISCHARGE PLAN Home Impression and plan of care have been directed as dictated by the signing physician. Carlee Arguelles nurse practitioner acting as scribe for signing physician. Patient Condition at Discharge: Good Plan - Discharge Summary Discharge Rx Participant: Yes New Discharge Prescriptions: Continue DULoxetine HCL [Cymbalta] 30 mg PO DAILY allopurinoL [Zyloprim] 100 mg PO BID Vit C/E/Zn/Coppr/Lutein/Zeaxan [Preservision Areds 2 Softgel] 1 cap PO BID Levothyroxine Sodium [Synthroid] 88 mcg PO DAILY Clopidogrel [Plavix] 75 mg PO DAILY #30 tab Ubidecarenone [Co Q-10] 200 mg PO DAILY Multivitamins, Thera [Multivitamin (formulary)] 1 tab PO DAILY Timolol 0.5% Ophth Soln [Timoptic 0.5% Ophth Soln] 1 drop BOTH EYES DAILY Rosuvastatin Calcium [Crestor] 10 mg PO HS lisinopriL [Zestril] 2.5 mg PO DAILY Sildenafil Citrate [Viagra] 100 mg PO DAILY PRN PRN Reason: E.D. Discharge Medication List DULoxetine HCL [Cymbalta] 30 mg PO DAILY 04/04/15 [History] allopurinoL [Zyloprim] 100 mg PO BID 04/04/15 [History] Levothyroxine Sodium [Synthroid] 88 mcg PO DAILY 03/08/18 [History] Vit C/E/Zn/Coppr/Lutein/Zeaxan [Preservision Areds 2 Softgel] 1 cap PO BID 03/08/18 [History] Clopidogrel [Plavix] 75 mg PO DAILY #30 tab 03/09/18 [Rx] Multivitamins, Thera [Multivitamin (formulary)] 1 tab PO DAILY 03/24/18 [History] Ubidecarenone [Co Q-10] 200 mg PO DAILY 03/24/18 [History] Rosuvastatin Calcium [Crestor] 10 mg PO HS 11/20/19 [History] Timolol 0.5% Ophth Soln [Timoptic 0.5% Ophth Soln] 1 drop BOTH EYES DAILY 11/20/19 [History] lisinopriL [Zestril] 2.5 mg PO DAILY 11/20/19 [History] Sildenafil Citrate [Viagra] 100 mg PO DAILY PRN 01/29/21 [History] Follow up Appointment(s)/Referral(s): Prosper Lowe MD [Primary Care Provider] - 1-2 days
[2021-01-31 07:57] VITALS: BP 134/75; PULSE 65; RESP 18; TEMP 98
[2021-01-31] MEDS: allopurinoL 100 MG TAB PO SCH (09:18)
[2021-01-31] MEDS: VIT A,C & E-LUTEIN-MINERALS 1 EACH TAB PO SCH (09:19)
[2021-01-31] MEDS: DULoxetine HCL 30 MG CAPSULE.DR PO SCH (09:20)
[2021-01-31] MEDS: TIMOLOL 0.5% OPHTH DROPS 5 ML BTL BOTH EYES SCH (09:21)
[2021-01-31] MEDS: SODIUM CHLORIDE 0.9% 1,000 ML IV SCH (11:27)
[2021-01-31] MEDS: PANTOPRAZOLE 40 MG/10 ML VIAL IVP SCH (11:27)
--- NOTE | 2021-01-31 12:17 | P.PN ---
Subjective Progress Note Date: 01/31/21 Principal diagnosis: Small bowel obstruction Patient doing well today. Tolerating diet. He has had some loose stools. Denies pain. No nausea. Plans for discharge. Objective - Vital Signs Vital signs: Vital Signs Temp 98 F 01/31/21 07:55 Pulse 65 01/31/21 07:55 Resp 18 01/31/21 07:55 BP 134/75 01/31/21 07:55 Pulse Ox 96 01/31/21 07:55 Intake & Output 01/30/21 01/31/21 01/31/21 18:59 06:59 18:59 Intake Total 1330 Balance 1330 Intake: Intake, IV Titration 850 Amount Sodium Chloride 0.9% 1, 850 000 ml @ 125 mls/hr IV . Q8H [facility] Rx#:[id number] Oral 480 Other: Voiding Method Toilet # Voids 4 2 - Exam Abdomen: Soft, nondistended, nontender - Labs CBC & Chem 7: 01/30/21 05:47 01/30/21 05:47 Assessment and Plan (1) Small bowel obstruction Narrative/Plan: Patient doing well at this time. Etiology remains unclear but patient improving. Continue softer foods post-discharge. Follow-up with any recurrent symptoms. Current Visit: Yes Status: Acute Code(s): K56.609 - UNSP INTESTNL OBST, UNSP TO PARTIAL VERSUS COMPLETE OBST SNOMED Code(s): 686531980
== END 2021-01-31 13:20 | disposition home or self-care (01) | DRG 390 ==
LOC: EC 23:19 → 4SSUR 01-29 03:31
PROVIDERS: ADMIT Internal Medicine; ATTEND Internal Medicine
PROC: 0D9670Z Drainage of Stomach with Drainage Device, Via Natural or Artificial Opening (ICD-10-PCS; principal; 2021-01-29)
DX: K56.600 Partial intestinal obstruction, unspecified as to cause (principal); I11.9 Hypertensive heart disease without heart failure; E03.9 Hypothyroidism, unspecified; E78.5 Hyperlipidemia, unspecified; N40.0 Benign prostatic hyperplasia without lower urinary tract symptoms; H40.9 Unspecified glaucoma; M1A.9XX0 Chronic gout, unspecified, without tophus (tophi); F32.9 Major depressive disorder, single episode, unspecified; N52.9 Male erectile dysfunction, unspecified; Z79.890 Hormone replacement therapy; Z79.02 Long term (current) use of antithrombotics/antiplatelets; Z79.899 Other long term (current) drug therapy; Z90.49 Acquired absence of other specified parts of digestive tract; Z87.19 Personal history of other diseases of the digestive system; Z86.73 Personal history of transient ischemic attack (TIA), and cerebral infarction without residual deficits; Z90.89 Acquired absence of other organs; Z87.891 Personal history of nicotine dependence; Z87.828 Personal history of other (healed) physical injury and trauma; Z98.890 Other specified postprocedural states; Z82.1 Family history of blindness and visual loss; Z81.8 Family history of other mental and behavioral disorders; Z81.1 Family history of alcohol abuse and dependence
CPT/HCPCS: 36415; 74018; 74021; 74177; 80053; 81001; 83605; 83690; 85025; 96374; 96375; 99285

== ENCOUNTER 2021-06-19 13:08 | Emergency (ER) | payer MEDICARE ==
[2021-06-19 13:35] VITALS: BP 137/72; PULSE 74; RESP 20; TEMP 99.6
--- NOTE | 2021-06-19 14:17 | XR ---
EXAMINATION TYPE: XR chest 2V DATE OF EXAM: 06/19/2021 COMPARISON: 11/20/[address] 01/29/2021 HISTORY: 80-year-old male with cough and shortness of breath TECHNIQUE: PA and lateral views FINDINGS: Left heart margin is obscured by adjacent elevated left hemidiaphragm. Density relating to a prominen t epicardial fat pad at the right cardiophrenic angle. Stable calcified granuloma left apex. No anna consolidation or pleural effusion seen. IMPRESSION: Chronic asymmetric elevation left hemidiaphragm. If concern for hemidiaphragmatic paralysis, an outpa tient fluoroscopic sniff test could be performed. No definite acute process.
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
== END 2021-06-19 15:20 | disposition home or self-care (01) ==
LOC: EC 13:08
DX: J06.9 Acute upper respiratory infection, unspecified (principal); E78.5 Hyperlipidemia, unspecified; E07.9 Disorder of thyroid, unspecified; F32.A Depression, unspecified; Z20.822 Contact with and (suspected) exposure to COVID-19; Z79.02 Long term (current) use of antithrombotics/antiplatelets; Z86.73 Personal history of transient ischemic attack (TIA), and cerebral infarction without residual deficits; Z90.49 Acquired absence of other specified parts of digestive tract
CPT/HCPCS: 71046; 87635; 99283

== ENCOUNTER 2022-02-13 09:04 | Day surgery (SDC) | payer MEDICARE ==
[2022-02-09 09:12] VITALS: BMI 36.0
[~2022-02-13 09:04] MED LIST: LACTATED RINGERS 1,000 ML IV SCH; LIDOCAINE 1% (10MG/ML) FOR IV START INTRADERMA PRN
[2022-02-13 09:39] VITALS: RESP 16; TEMP 96.4
[2022-02-13] MEDS ORDERED: PROPOFOL 10 MG/ML 20 ML VIAL IV ONE (10:21)
--- NOTE | 2022-02-13 10:41 | P.PCN ---
Date of Procedure: 02/13/22 Procedure(s) Performed: BRIEF HISTORY: Patient is a 81-year-old pleasant white male scheduled for an elective colonoscopy as a part of screening for colorectal neoplasia. PROCEDURE PERFORMED: Colonoscopy. PREOPERATIVE DIAGNOSIS: Screening for colon cancer. IV sedation per Anesthesia. PROCEDURE: After informed consent was obtained, the patient, was brought into the endoscopy unit. IV sedation was administered by Anesthesia under continuous monitoring. Digital rectal examination was normal. Initially the Olympus CF-160 flexible video colonoscope was then inserted in the rectum, gradually advanced into the cecum without any difficulty. Careful examination was performed as the scope was gradually being withdrawn. Ileocecal valve and the appendiceal orifice were visualized and appeared normal. Prep was excellent. Mucosa of the cecum, ascending colon, transverse colon, descending colon, sigmoid colon, and rectum appeared normal. Scattered sigmoid diverticulosis. Retroflexion was performed in the rectum and no lesions were seen. The patient tolerated the procedure well. IMPRESSION: Normal-appearing colon from rectum to cecum with no evidence of colorectal . RECOMMENDATIONS: Findings of this examination were discussed with the patient as well as his family. He was advised to be a high-fiber diet and take fiber supplements a regular basis..
[2022-02-13 11:24] VITALS: BP 112/57; PULSE 61
== END 2022-02-13 11:34 | disposition home or self-care (01) ==
LOC: ORWHC2ENDO 09:04
PROVIDERS: ATTEND Internal Medicine Gastroenterology
DX: Z12.11 Encounter for screening for malignant neoplasm of colon (principal); K57.30 Diverticulosis of large intestine without perforation or abscess without bleeding; I10 Essential (primary) hypertension; E78.5 Hyperlipidemia, unspecified; G47.33 Obstructive sleep apnea (adult) (pediatric); E07.9 Disorder of thyroid, unspecified; Z86.73 Personal history of transient ischemic attack (TIA), and cerebral infarction without residual deficits; Z79.899 Other long term (current) drug therapy; Z79.01 Long term (current) use of anticoagulants; Z79.890 Hormone replacement therapy; Z87.891 Personal history of nicotine dependence
CPT/HCPCS: J2704; G0121; 45378

== ENCOUNTER → 2022-11-28 | Outpatient (CLI) | payer MEDICARE ==
--- NOTE | 2022-11-28 10:58 | CT ---
EXAMINATION TYPE: CT abdomen pelvis wo/w con DATE OF EXAM: 11/28/2022 COMPARISON: Prior CT January 29, 2021 HISTORY: Left sided flank pain and constipation. CT DLP: 3223 mGycm, Automated Exposure Control for Dose Reduction was Utilized. CONTRAST: CT scan of the abdomen and pelvis is performed with oral and without and with IV Contrast, patient in jected with 100ml mL of Isovue 300. FINDINGS: LUNG BASES: Elevated left hemidiaphragm is redemonstrated with focal left basilar scarring and/or ate lectasis. LIVER/GB: Cholecystectomy clips are redemonstrated. PANCREAS: No significant abnormality is seen. SPLEEN: Numerous punctate calcifications throughout the spleen consistent with product of old granulo matous disease are redemonstrated. ADRENALS: No significant abnormality is seen. KIDNEYS: No renal calculi on noncontrast images. Symmetric cortical uptake and excretion without hyd ronephrosis seen bilaterally. No concerning solid or cystic renal masses bilaterally. BOWEL: Oral contrast reaches level of the hepatic flexure. There is wandering cecum into the midabdom en axial image 40 on the current study. Terminal ileum appears within normal limits coronal image 36. A few distal colonic diverticula. No convincing CT evidence for acute diverticulitis. PROSTATE/SEMINAL VESICLES: No gross abnormality seen. LYMPH NODES: No greater than 1cm abdominal or pelvic lymph nodes are appreciated. OSSEOUS STRUCTURES: Surgical changes to the left iliac bone and acetabulum redemonstrated OTHER: Moderate-size fat-containing right inguinal hernia is redemonstrated. IMPRESSION: No renal stones or hydronephrosis seen bilaterally. No bowel obstruction currently. Elev ated left hemidiaphragm redemonstrated. Distal colonic diverticulosis without CT evidence for acute d iverticulitis. Wandering cecum noted on current study.
== END | disposition home or self-care (01) ==
LOC: RADCTMAIN 07:00
PROVIDERS: ATTEND Internal Medicine
DX: K57.30 Diverticulosis of large intestine without perforation or abscess without bleeding (principal); J98.6 Disorders of diaphragm
CPT/HCPCS: 74178; Q9967

== ENCOUNTER → 2022-12-29 | Outpatient (CLI) | payer MEDICARE ==
--- NOTE | 2022-12-30 10:00 | MR ---
EXAMINATION TYPE: MR lumbar spine wo con DATE OF EXAM: 12/29/2022 1:43 PM COMPARISON: 04/03/2018 HISTORY: Low back pain, spondylosis of lumbar Multiplanar, MultiSpin echo imaging of the lumbar spine was performed. L1-L2: Moderate disc desiccation with posterior disc bulge. Effacement of the ventral thecal sac with borderline to mild central stenosis. Facet joint arthropathy with mild bilateral neural foraminal en croachment greater on the left. L2-L3: Moderate disc desiccation with moderate posterior disc bulge. Hypertrophy ligamentum flavum an d facet joint arthropathy contribute to [id number] central stenosis. There is left-sided neural foraminal encroachment seen. L3-L4: Moderate disc desiccation with moderate posterior disc bulge. Hypertrophy ligamentum flavum an d facet joint arthropathy contribute to [id number] central stenosis. There is left-sided neural foraminal encroachment seen. L4-L5: Moderate disc desiccation with circumferential disc bulge. Mild effacement ventral thecal sac. No evidence for central stenosis or lateral recess stenosis. Degenerative endplate marrow changes. E ncroachment. Facet joint arthropathy. L5-S1: Moderate disc desiccation with circumferential disc bulge. Mild effacement ventral thecal sac. No evidence for central stenosis or lateral recess stenosis. Degenerative endplate marrow changes. E ncroachment. Facet joint arthropathy. Lumbar segments are intact. No paraspinal masses are identified. Conus medullaris has a normal appe arance. IMPRESSION: 1. Progressive Multilevel degenerative disc disease. 2. Progressive Multilevel central stenosis and neural foraminal encroachment as outlined above.
== END | disposition home or self-care (01) ==
LOC: RADMRIMAIN 13:01
PROVIDERS: ATTEND Internal Medicine
DX: M51.36 Other intervertebral disc degeneration, lumbar region (principal); M48.061 Spinal stenosis, lumbar region without neurogenic claudication; M47.816 Spondylosis without myelopathy or radiculopathy, lumbar region
CPT/HCPCS: 72148

== ENCOUNTER → 2023-02-11 | Outpatient (CLI) | payer MEDICARE ==
[2023-02-11 13:24] VITALS: BP 144/72; PULSE 89; RESP 15; TEMP 97.7
--- NOTE | 2023-02-11 14:43 | P.PAINPG ---
PQRS Measure Charge Sheet Comment: HISTORY OF PRESENT ILLNESS: 82 yr old as a referral from Dr Lowe presents today w severe and chronic LBP x 23 yrs secondary to DDD, spondylosis and facet arthropathy without myelopathy for evaluation. Pt states pain level is provoked at 8 /10 in intensity, constant, localized in the lower lumbar spine, sharp, achy in character w shooting pain towards the LLE. Pain is provoked by standing and over activity. Pain is alleviated by PT in 2019, physician guided exercises 3-5 times weekly since 2019, exercise at the [facility] three times weekly x 2 yrs, bike riding twice weekly x 1 yr, medications, heat, repositioning and rest. Oswestry axial pain score at 19. PMH: OA, HTN, Hyperlipidemia, BEBE, CVA, BPH, Hypothyroidism, Gout PSH: L Elbow Surgery, L Hip Surgery, Spleen Surgery, Cholecystectomy, Tonsillectomy, Colonoscopy (2021) SH: Negative x3 FH: Fa- Esophageal CA/ Suicide at age 75. Mo- CVA/ Dementia/ at age 89. All: See list Meds: See list REVIEW OF ORGAN SYSTEMS: CONSTITUTIONAL: No fevers or chills. No recent weight loss. NEUROLOGICAL: + numbness and tingling along the distal extremities. No seizure disorders or headaches. MUSCULOSKELETAL: + pain PSYCHIATRIC: Denies current depression or suicidal thoughts. Physical Examinations : Constitutional : Cooperative , not in acute distress . Neurologic : Cranial nerve II to XII intact. No focal neurological deficits. Psychiatric : alert & oriented x 3. Matching mood & appropriate affect. Judgment & insight intact. Musculoskeletal : Cervical Spine Motor strength in the deltoid and biceps: Normal right side. Normal Left side Motor strength biceps and the wrist extensors: Normal right side . Normal left side Motor strength in the triceps muscle: Normal right side. Normal left side Deep tendon reflexes: Normal at the biceps. Normal at Brachioradialis. Normal at triceps Vertebral body tenderness to deep palpation over Cervical facet loading test: positive bilaterally Spurling test: positive bilaterally Neck distraction test: positive bilaterally Lucia sign: positive bilaterally Lumbar spine Motor strength lower extremities ,thigh and legs 5/5 Right side , 5/5 Left side Deep tendon reflexes : Normal Knee Jerk. Normal Ankle Jerk Vertebral body tenderness over L5 Alexis Test positive Lumbar facet Loading Test: positive Right / positive Left Range of motion of the lumbar spine Flexion 30 degrees, extension 10 degrees Straight Leg Raise test: Left/ Right positive at 35 degrees Phoebe test: positive right / positive left. Severe tenderness over the Sacroiliac joint on the Right / Left sides Gaenslen test: positive bilaterally Seated flexion test: positive bilaterally. Sacral spine : Severe tenderness over the Sacroiliac joint: right side / left side Range of motion: Flexion of the lumbar spine <60 degrees Range of motion: Extension of the lumbar spine <20 degrees Gaenslen's Test positive Payam's Test positive Phoebe test: positive right side / left side Thigh Thrust Test Sacral Thrust Test Imaging: MRI noncontrast of the lumbar spine from 12/29/22 reviewed Assessment/ Plan : Lumbar DDD Recommendation of KEYON L5-S1. May need a series of injections for optimal pain relief. Risks, benefits of procedure discussed and patient verbalized understanding. Admits to aspirin or anti- coagulant use or medical history of diabetes. Protocol for discontinuation/ continuation of medications mihir procedure discussed. Minimal anesthesia provided, if clinically indicated, consisting of Versed and Fentanyl. All questions answered. I have spent greater than 30 minutes on patient care today. Dr Nielsen was available by phone for the evaluation of this patient. The time was used to review the medical records including relevant urine studies and Prescription history (MAPs), review of the available imaging, evaluation and examination of the patient, coordination of care with the medical staff and if applicable referring physicians, as well as creation of the medical record PQRS Narrative: Smoking Status Former smoker Home Medications: Ambulatory Orders DULoxetine HCL [Cymbalta] 30 mg PO DAILY 04/04/15 allopurinoL [Zyloprim] 100 mg PO BID 04/04/15 Levothyroxine Sodium [Synthroid] 88 mcg PO DAILY 03/08/18 Vit C/E/Zn/Coppr/Lutein/Zeaxan [Preservision Areds 2 Softgel] 1 cap PO BID 03/08/18 Clopidogrel [Plavix] 75 mg PO DAILY #30 tab 03/09/18 Multivitamins, Thera [Multivitamin (formulary)] 1 tab PO DAILY 03/24/18 Ubidecarenone [Co Q-10] 200 mg PO DAILY 03/24/18 Rosuvastatin Calcium [Crestor] 10 mg PO HS 11/20/19 lisinopriL [Zestril] 2.5 mg PO DAILY 11/20/19 Cephalexin [Keflex] 500 mg PO TID 02/09/22 Cyanocobalamin [Vitamin B-12] 500 mcg PO DAILY 02/09/22 Latanoprost Ophth [Xalatan 0.005%] 1 drops BOTH EYES DAILY 02/09/22 Sulfamethoxazole/Trimethoprim [Sulfamethoxazole-Tmp Ds Tablet] 1 each PO BID 02/09/22 Controlled Substance Measures - Controlled Substance Measures Is patient prescribed a controlled substance at discharge?: No
== END ==
LOC: PNWHC3 12:45
PROVIDERS: ATTEND Specialist
DX: M47.816 Spondylosis without myelopathy or radiculopathy, lumbar region (principal); M19.90 Unspecified osteoarthritis, unspecified site; I10 Essential (primary) hypertension; E03.9 Hypothyroidism, unspecified; E78.5 Hyperlipidemia, unspecified; G47.33 Obstructive sleep apnea (adult) (pediatric); Z86.73 Personal history of transient ischemic attack (TIA), and cerebral infarction without residual deficits; M10.9 Gout, unspecified; M51.37 Other intervertebral disc degeneration, lumbosacral region; Z79.890 Hormone replacement therapy; Z79.899 Other long term (current) drug therapy; Z87.891 Personal history of nicotine dependence
CPT/HCPCS: 99211

== ENCOUNTER 2023-07-01 06:22 | Emergency (ER) | payer MEDICARE ==
[2023-07-01 06:35] VITALS: TEMP 98.4
[2023-07-01] MEDS ORDERED: BENZONATATE 100 MG CAP PO STA (06:52)
--- NOTE | 2023-07-01 07:47 | XR ---
EXAMINATION TYPE: XR chest 2V DATE OF EXAM: 07/01/2023 COMPARISON: 06/19/2021 HISTORY: 82-year-old male with cough and increased shortness of breath TECHNIQUE: PA and lateral views FINDINGS: Ongoing asymmetric elevation left hemidiaphragm, unchanged from 2020. Some adjacent strandy atelectas is at the left base. This partially obscures the left heart margin. Unchanged calcified granuloma lef t apex. Opacity in the right cardiophrenic angle compatible with a prominent epicardial fat pad when correlating with the CT of 11/28/2022. No anna consolidation or pleural effusion seen. IMPRESSION: 1. Long-standing asymmetric elevation left hemidiaphragm. This may reflect a diaphragmatic eventratio n or hemidiaphragmatic paralysis. A fluoroscopic sniff test may be performed if not previously evalua deb. 2. Prominent epicardial fat pad at the right cardiophrenic angle. Evidence of prior granulomatous dis ease. 3. Otherwise, no definite acute process.
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
[2023-07-01] MEDS ORDERED: BENZONATATE 100 MG CAP PO PRN (08:24)
[2023-07-01 08:49] VITALS: BP 127/78; PULSE 78; RESP 18
[2023-07-01] MEDS ORDERED: BENZONATATE 100 MG CAP PO SCH (09:00)
== END 2023-07-01 08:33 | disposition home or self-care (01) ==
LOC: EC 06:22
DX: U07.1 COVID-19 (principal); E78.5 Hyperlipidemia, unspecified; E07.9 Disorder of thyroid, unspecified; I10 Essential (primary) hypertension; Z86.59 Personal history of other mental and behavioral disorders; Z79.890 Hormone replacement therapy; Z79.899 Other long term (current) drug therapy
CPT/HCPCS: 71046; 87636; 99283

== ENCOUNTER → 2023-11-08 | Outpatient (CLI) | payer MEDICARE ==
--- NOTE | 2023-11-08 11:36 | XR ---
EXAMINATION TYPE: XR ribs RT w pa chest xray DATE OF EXAM: 11/08/2023 COMPARISON: 07/01/2023, 06/19/2021 HISTORY: Pleurodynia right side TECHNIQUE: AP chest 2 view right ribs FINDINGS: No pneumothorax is evident. Ribs as visualized appear intact. No displaced rib fractures ar e evident. Heart size is normal. Pulmonary vasculature is normal. Small chronic nodules in the left apex. This i s stable. There is chronic elevation of the left diaphragm. IMPRESSION: 1. No acute right rib abnormality.
== END | disposition home or self-care (01) ==
LOC: RADXRMAIN 11:06
PROVIDERS: ATTEND Internal Medicine
DX: R07.81 Pleurodynia (principal)

== ENCOUNTER → 2023-11-14 | Outpatient (CLI) | payer MEDICARE ==
--- NOTE | 2023-11-15 10:01 | US ---
EXAMINATION TYPE: US kidneys/renal and bladder DATE OF EXAM: 11/14/2023 COMPARISON: 05/12/2018 CLINICAL INDICATION: Male, 83 years old with history of N18.9 CHRONIC KIDNEY DISEASE, UNSPECIFIED; CK D EXAM MEASUREMENTS: Right Kidney: 11.1 x 5.5 x 5.0 cm Left Kidney: 10.0 x 5.0 x 4.5 cm Right Kidney: no evidence of hydronephrosis Left Kidney: limited evaluation due to overlying bowel gas, no evidence of hydronephrosis Bladder: appears wnl Bilateral Jets seen: no There is no evidence for hydronephrosis at this point in time. No nephrolithiasis is seen. No javier s are identified. The urinary bladder is anechoic IMPRESSION: No significant abnormality seen.
== END | disposition home or self-care (01) ==
LOC: RADUSWWP 16:21
PROVIDERS: ATTEND Internal Medicine
DX: N18.9 Chronic kidney disease, unspecified (principal)
CPT/HCPCS: 76770

== ENCOUNTER → 2024-06-26 | Outpatient (CLI) | payer MEDICARE ==
--- NOTE | 2024-06-26 14:29 | BD ---
EXAMINATION TYPE: Axial Bone Density DATE OF EXAM: 06/26/2024 CLINICAL HISTORY: 83 years old Male. 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 History of Fracture in Adulthood: yes Secondary Osteoporosis: 1. Type 1 Diabetes: no 2. Hyperthyroidism: no 4. Malnutrition: no 5. Chronic liver disease: no Rheumatoid Arthritis: no Current Tobacco Use: no RISK FACTORS HISTORY OF: Hip Fracture (Right/Left): left When: 1998 Surgery to Spine/Hip(right/left)/Wrist (right/left): left hip When: 1998 EXAM MEASUREMENTS: Bone mineral densitometry was performed using the [employer] System. Bone mineral density as measured about the Lumbar spine is: ----- L1-L4(G/cm2): 1.443 T Score Values are as follows: ----- L1: 2.1 ----- L2: 2.7 ----- L3: 2.1 ----- L4: 1.9 ----- L1-L4: 2.2 Z Score Values are as follows: ----- L1: 1.8 ----- L2: 2.4 ----- L3: 1.7 ----- L4: 1.5 ----- L1-L4: 1.9 Bone mineral density : baseline Bone mineral density about the R hip (g/cm2): 1.022 T Score values are as follows: -----R Neck: -0.9 -----R Total: 0.1 Z Score values are as follows: -----R Neck: -0.1 -----R Total: 0.2 Bone mineral density : baseline FRAX%s: The graph provided illustrates a 9.1% chance for a major osteoporotic fx and a 2.7% chance fo r the hips probability for fx in 10 years time. IMPRESSION: Normal (Values between +1 and -1 indicate normal bone mass). Consider repeating this study in 5 year s or sooner if there is some new clinical indication. NOTE: T-SCORE=SD OF THE YOUNG ADULT MEAN. [facility], , 06/26/2024 2:27 PM
== END | disposition home or self-care (01) ==
LOC: RADBDWWP 07:56
PROVIDERS: ATTEND Internal Medicine
DX: M35.3 Polymyalgia rheumatica (principal)
CPT/HCPCS: 77080

== ENCOUNTER → 2024-11-24 | Outpatient (CLI) | payer MEDICARE ==
[2024-11-25 02:50] LABS: % Iron Saturation 21.48 (15.00-50.00)
[2024-11-25 11:48] LABS: Smooth Muscle Antibody 11 UNITS (<20)
== END | disposition home or self-care (01) ==
LOC: LABWHC1 16:31
PROVIDERS: ATTEND Internal Medicine
DX: N18.2 Chronic kidney disease, stage 2 (mild) (principal); H02.402 Unspecified ptosis of left eyelid
CPT/HCPCS: 36415; 82728; 83516; 83540; 83550; 86041

== ENCOUNTER → 2025-01-28 | Outpatient (CLI) | payer MEDICARE ==
--- NOTE | 2025-01-28 10:56 | XR ---
EXAMINATION TYPE: XR chest 2V DATE OF EXAM: 01/28/2025 10:50 AM COMPARISON: 11/08/2023 CLINICAL INDICATION: Male, 84 years old with history of R09.89 URI, cough and fever TECHNIQUE: Frontal and lateral views FINDINGS: Asymmetric elevation left hemidiaphragm is unchanged. Prominent patchy left basilar opacity likely at electasis. Unchanged calcified granuloma periphery of the left upper lobe. There is focal consolidati on periphery of the left upper lung. No pleural effusion. Left heart margin partially obscured by the elevated hemidiaphragm. IMPRESSION: 1. Exam positive for a left upper lobe pneumonia. 2. Ongoing asymmetric elevation left hemidiaphragm. If concern for hemidiaphragmatic paralysis, a flu oroscopic sniff test could be performed. [facility], , 01/28/2025 10:54 AM
== END | disposition home or self-care (01) ==
LOC: RADXRMAIN 10:33
PROVIDERS: ATTEND Internal Medicine
DX: J18.9 Pneumonia, unspecified organism (principal); R09.89 Other specified symptoms and signs involving the circulatory and respiratory systems; J98.6 Disorders of diaphragm
CPT/HCPCS: 71046